=== PATIENT | female | born 1965 | race Caucasian/White ===

== ENCOUNTER → 2016-12-09 | Outpatient (CLI) | payer OTHER ==
[~2016-12-09] MED LIST: /DOXE100CA PO; /PREG50CA PO; AMIT25TA PO; BUTA-198 PO; CALC500T21 PO; COLA100C5 PO; CYCL10TA3 PO; DOXE100CA PO; DUONSOL IN; FERR1TAB8 PO; GABA-279 PO; GABA-282 PO; HYDR10TA20 PO; HYDR2TAB2 PO; LEVS0.123 SL; LINZ145C PO; META28.35 PO; METAPKT PO; MIDO5TA PO; MIRA3350 PO; OMEP20CA3 PO; ORSYTAB PO; OYST500T50 PO; TRAZ50TA11 PO; TYLE325T5 PO; VITA10002 PO; VITA500C24 PO; VITATAB11 PO; VITATAB73 PO
[2016-12-09 13:09] LABS: MEAN CORPUSCULAR HEMOGLOBIN 32.1 pg (27.0-33.0); MEAN CORPUSCULAR HGB CONC 36.1 g/dl (32.0-36.5); MEAN CORPUSCULAR VOLUME 88.9 fl (80.0-96.0); PLATELET COUNT, AUTOMATED 133 k/mm3 (150-450); RED CELL DISTRIBUTION WIDTH 11.9 % (11.5-14.5); WHITE BLOOD COUNT 4.9 K/mm3 (4.0-10.0)
[2016-12-09 13:10] LABS: ADD MANUAL DIFFER NO; ADD MORPHOLOGY? NO; BASO % 0.4 % (0.0-1.0); DIFF SLIDE NUMBER 175; EOS # 0.2 K/mm3 (0.0-0.50); EOS % 3.5 % (0.0-3.0); LARGE UNSTAINED CELL # 0.1 K/mm3 (0.0-0.4); LARGE UNSTAINED CELL % 1.6 % (0.0-4.0); LYMPH # 1.7 K/mm3 (1.5-4.5); LYMPH % 33.4 % (24.0-44.0); MONO # 0.3 K/mm3 (0.0-0.8); MONO % 5.6 % (0.0-5.0); NEUTROPHILS # 2.8 K/mm3 (1.8-7.7); NEUTROPHILS % 55.4 % (36.0-66.0)
--- NOTE | 2016-12-09 13:29 | REP ---
LUMBOSACRAL SPINE: Five views lumbosacral spine performed. There is no compression fracture or malalignment with normal lumbar lordosis. There is no spondylolysis or spondylolisthesis. Disc spaces appear well preserved. There is mild spurring of the lumbar vertebral bodies. There is mild sclerosis at the facets of L5-S1. There is slight curvature toward the left. Posterior elements appear intact. IMPRESSION: Minimal degenerative changes appear stable compared to prior study of 08/25/2009. Signed by Justino Coombs MD 12/09/2016 02:26 P
[2016-12-09 13:32] LABS: ERYTHROCYTE SEDIMENTATION RATE 1 mm/hr (0-30)
--- NOTE | 2016-12-09 13:32 | REP ---
SACROILIAC JOINTS: Four views of the sacroiliac joints are performed. There is no fracture or dislocation. The sacroiliac joints do not appear to be significantly narrowed. There is mild subchondral sclerosis on the iliac side of the joints bilaterally in a fairly symmetrical pattern. IMPRESSION: Mild subchondral sclerosis along the sacroiliac joints bilaterally, mainly on the iliac side of the joints. Signed by Justino Coombs MD 12/09/2016 02:26 P
--- NOTE | 2016-12-09 13:34 | REP ---
BILATERAL KNEE SERIES: Five views of bilateral knees performed. There is no fracture or dislocation bilaterally. There is mild diffuse joint space narrowing, subchondral sclerosis and spurring bilaterally. Findings are fairly symmetrical. There is slight bilateral lateral patellofemoral compartment narrowing with subchondral sclerosis. Mild spurring is noted of the lateral patellar facets bilaterally as well as the superior poles of the patellas. IMPRESSION: Mild bilateral degenerative changes. Signed by Justino Coombs MD 12/09/2016 02:26 P
--- NOTE | 2016-12-09 13:37 | REP ---
BILATERAL FOOT SERIES: Four views of bilateral feet performed. There is no acute fracture or dislocation bilaterally. There is mild posterior and inferior calcaneal spurring on the left with mild joint space, subchondral sclerosis and spurring at the first metatarsophalangeal joint. There is also mild spurring of the posterior and inferior right calcaneus with mild spurring, subchondral sclerosis and narrowing at the first metatarsophalangeal joint in the right foot. IMPRESSION: Mild bilateral degenerative changes. Signed by Justino Coombs MD 12/09/2016 02:26 P
[2016-12-09 13:59] LABS: ALBUMIN/GLOBULIN RATIO 1.14 (1.00-1.93); ALKALINE PHOSPHATASE 102 U/L (45-117); ALT/SGPT 83 U/L (12-78); ANION GAP 6 MEQ/L (8-16); AST/SGOT 44 U/L (15-37); BILIRUBIN,TOTAL 0.4 MG/DL (0.2-1.0); BLOOD UREA NITROGEN 9 MG/DL (7-18); CARBON DIOXIDE LEVEL 29 MEQ/L (21-32); CHLORIDE LEVEL 109 MEQ/L (98-107); CREATININE FOR GFR 0.58 MG/DL (0.55-1.02); GLOMERULAR FILTRATION RATE > 60.0 (>51); GLUCOSE, FASTING 92 MG/DL (70-105); SODIUM LEVEL 144 MEQ/L (136-145); TOTAL PROTEIN 7.5 GM/DL (6.4-8.2)
[2016-12-09 14:00] LABS: VITAMIN B12 LEVEL 1455 PG/ML (247-911)
[2016-12-12 00:06] LABS: Lyme Disease IgG/IgM Antibodie <0.91 ISR (0.00-0.90); Lyme Disease IgM Ab Quantitati <0.80 index (0.00-0.79)
== END ==
LOC: M LAB 11:08
PROVIDERS: ATTEND Internal Medicine Rheumatology
DX: Z79.899 Other long term (current) drug therapy (principal)

== ENCOUNTER → 2017-08-24 | Outpatient (CLI) | payer OTHER ==
[~2017-08-24] MED LIST changes: -/DOXE100CA PO; -/PREG50CA PO; -AMIT25TA PO; -BUTA-198 PO; -CALC500T21 PO; -COLA100C5 PO; +CONRAY-43 43% 50ML VIAL (Q9960) As Ordered; -CYCL10TA3 PO; -DOXE100CA PO; -DUONSOL IN; -FERR1TAB8 PO; -GABA-279 PO; -GABA-282 PO; -HYDR10TA20 PO; -HYDR2TAB2 PO; -LEVS0.123 SL; -LINZ145C PO; -META28.35 PO; -METAPKT PO; -MIDO5TA PO; -MIRA3350 PO; -OMEP20CA3 PO; -ORSYTAB PO; -OYST500T50 PO; -TRAZ50TA11 PO; -TYLE325T5 PO; -VITA10002 PO; -VITA500C24 PO; -VITATAB11 PO; -VITATAB73 PO
== END ==
LOC: M RADPRO 08:38
DX: M17.12 Unilateral primary osteoarthritis, left knee (principal); M94.262 Chondromalacia, left knee; M22.2X2 Patellofemoral disorders, left knee
CPT/HCPCS: 27370

== ENCOUNTER → 2017-09-07 | Outpatient (REF) | payer OTHER ==
[2017-09-07 13:48] LABS: BASO % 0.8 % (0.0-1.0); EOS # 0.2 10^3/uL (0.0-0.50); EOS % 2.9 % (0.0-3.0); HEMATOCRIT 41.1 % (36.0-47.0); HEMOGLOBIN 13.8 g/dl (12.0-15.5); IMMATURE GRANULOCYTE % 0.4 % (0-3.0); LYMPH # 1.5 10^3/uL (1.5-4.5); LYMPH % 29.2 % (24.0-44.0); MEAN CORPUSCULAR HEMOGLOBIN 30.3 pg (27.0-33.0); MEAN CORPUSCULAR HGB CONC 33.6 g/dl (32.0-36.5); MEAN CORPUSCULAR VOLUME 90.3 fl (80.0-96.0); MONO # 0.4 10^3/uL (0.0-0.8); MONO % 7.9 % (0.0-5.0); NEUTROPHILS # 3.1 10^3/uL (1.8-7.7); NEUTROPHILS % 58.8 % (36.0-66.0); PLATELET COUNT, AUTOMATED 213 10^3/uL (150-450); RED BLOOD COUNT 4.55 10^6/uL (4.00-5.40); RED CELL DISTRIBUTION WIDTH 12.2 % (11.5-14.5); WHITE BLOOD COUNT 5.2 10^3/uL (4.0-10.0)
[2017-09-07 14:08] LABS: ERYTHROCYTE SEDIMENTATION RATE 5 mm/hr (0-30)
[2017-09-07 14:35] LABS: C REACTIVE PROTEIN QUANTITATIV < 0.30 MG/DL (0.00-0.30); RHEUMATOID FACTOR QUANT < 10.0 IU/ML (<15.0)
[2017-09-07 14:35] LABS: URIC ACID 4.9 MG/DL (2.6-6.0)
[2017-09-09 00:13] LABS: ANTINUCLEAR ANTIBODIES DIRECT Negative (Negative); Lyme Disease IgG/IgM Antibodie <0.91 ISR (0.00-0.90); Lyme Disease IgM Ab Quantitati <0.80 index (0.00-0.79)
== END ==
LOC: M LABDRAW1 13:25
DX: M22.2X2 Patellofemoral disorders, left knee (principal)

== ENCOUNTER → 2019-12-28 | Outpatient (CLI) | payer OTHER ==
[~2019-12-28] MED LIST changes: +ACAR25TA2 PO; +AMIT25TA PO; +ASPI81TA26 PO; +ATOR40TA75 PO; +BACL1TAB8 PO; +BUTA-198 PO; +CALC500T21 PO; +COLA100C5 PO; -CONRAY-43 43% 50ML VIAL (Q9960) As Ordered; +CYAN100049 PO; +CYCL10TA3 PO; +DILA2TAB6 PO; +DOK1CAP7; +DOXE100CA PO; +DOXE1CAP8 PO; +DUONSOL IN; +FERR1TAB8 PO; +FIOR1CAP PO; +GABA-1171 PO; +GABA-843 PO; +GABA600T4 PO; +HYDR-4571 PO; +HYDR10TA20 PO; +HYDR2TAB2 PO; +KONS100P4 PO; +LEVS0.123 SL; +LINZ145C PO; +LYRI50CA PO; +MELO7.5T35 PO; +META28.35 PO; +METO1TAB87 PO; +MIDO5TA PO; +MIRA3350 PO; +OMEP20CA3 PO; +ORSYTAB PO; +OXYB-54 PO; +OYST500T10 PO; +OYST500T50 PO; +PANT40TA29 PO; +PLAV1TAB2 PO; +POTA10TA16 PO; +RAMI1CAP21 PO; +TEMA15CA2 PO; +TRAZ-252 PO; +TRAZ150T90 PO; +TYLE325T5 PO; +VITA500C24 PO; +VITATAB11 PO; +VITATAB73 PO
== END ==
LOC: M LABSMTC 08:11
PROVIDERS: ATTEND Anesthesiology
DX: Z01.812 Encounter for preprocedural laboratory examination (principal); Z20.828 Contact with and (suspected) exposure to other viral communicable diseases
CPT/HCPCS: C9803; U0003

== ENCOUNTER 2020-01-02 12:40 | Day surgery (SDC) | payer OTHER ==
[~2020-01-02] VITALS: Ht 157.5 cm; Wt 68.4 kg
[~2020-01-02 12:40] MED LIST changes: +LIDOCAINE 1% SDV 30ML VIAL As Ordered ONE; +LR 1,000 ML IV ONE; +MIDAZOLAM INJ 2MG/2ML VIAL (J2250 PER 1MG) As Ordered ONE; -PLAV1TAB2 PO; +ceFAZolin SOD 1 GM in D5W MINI-BAG PLUS 50 ML IV ONE; +fentaNYL 100 MCG/2 ML INJECTION (J3010) As Ordered ONE
[2020-01-02] MEDS ORDERED: PLAV1TAB2 PO (13:19)
[2020-01-02] MEDS ORDERED: NEOSPORIN TOP OINT 15GM As Ordered ONE (13:51)
[2020-01-02] MEDS ORDERED: ONDANSETRON 4MG/2ML VIAL As Ordered ONE (14:34)
[2020-01-02] MEDS ORDERED: propofoL 200 MG/20 ML VIAL As Ordered ONE ×2 (14:34→15:48)
[2020-01-02] MEDS ORDERED: LIDOCAINE 2% 100MG/5ML SDV (FOR ANES.) As Ordered ONE (14:34)
[2020-01-02] MEDS ORDERED: fentaNYL 100 MCG/2 ML INJECTION (J3010) As Ordered ONE (16:04)
[2020-01-02 17:00] VITALS: BP 122/75
--- NOTE | 2020-01-03 10:37 | RO ---
DATE OF OPERATION: 01/02/2020 PREOPERATIVE DIAGNOSIS: Pacemaker battery depletion. POSTOPERATIVE DIAGNOSIS: Pacemaker battery depletion. PROCEDURE PERFORMED: Explantation of old dual-chamber pacemaker pulse generator and implantation of new dual-chamber pacemaker pulse generator. Placement of a TYRX antimicrobial envelope. FINDINGS: Pacemaker battery depletion. SURGEON: Nicho Lomas M.D. COMPOSITE BOND WORKER: None. ANESTHESIA: Lidocaine 1% local/monitored anesthetic care. SPECIMENS: Old [employer] dual-chamber pacemaker pulse generator. ESTIMATED BLOOD LOSS: Less than 5 mL. BLOOD PRODUCTS REPLACED: None. DRAINS: None. COMPLICATIONS: None. PROCEDURE DESCRIPTION: Patient was prepped and draped over the left pectoral region. 3M Ioban film was applied. Lidocaine 1% was used for local anesthetic. An incision was made over the existing pacemaker pulse generator scar using a Antavo PEAK PlasmaBlade. The PEAK PlasmaBlade was used to down to the anterior capsule overlying the pacemaker pulse generator with a small amount of fine scissors dissection. The tie-down stitch holding the pacemaker pulse generator was then snipped and removed as much as possible. Next, I freed up some of the adhesions on the pacemaker leads in the floor of the pocket. After freeing up some of the adhesions on the leads, the pacemaker pulse generator was switched over to the new pacemaker pulse generator and the internal pins were secured using the Hex screwdriver to tighten the set screws. Next, I took a medium-size Medtronic TYRX antimicrobial envelope (reference #[id number], lot #[id number]). It was cut into four pieces and [facility]. Next, the excess lead material was coiled underneath the new pacemaker pulse generator and placed into the pacemaker pocket with the pacemaker pulse generator on top and the excess lead material below. The pacemaker pulse generator was then secured to the pectoral muscle using an 0 Ethibond suture. The deep layer was closed using individual sutures consisting of 2-0 Vicryl. A few 3-0 Vicryl sutures were used to help close the more superficial layer. I then used a 4-0 Biosyn suture to approximate the skin subcuticular layer with the stitch protruding 1 cm from either side of the incision. The Biosyn suture was then cut on both sides at the level of the skin. Next, a Prineo dressing was applied. Patient tolerated the procedure well without any immediate complications. The existing pacemaker pulse generator that was removed was a [employer], model L301 with serial #[id number], initially implanted 05/25/2015. The new pacemaker pulse generator implanted was a [employer] Accolade MRI EL DR, model L331 with serial #[id number]. The existing right ventricle lead was a Guidant Dextrus IS-1 bipolar active fixation lead, 53 cm, model 4136 with serial #[id number], originally implanted 05/25/2015. Testing through the new pacemaker device for the right ventricular lead showed capture threshold of 1.3 volts at 0.4 milliseconds with lead impedance of 517 ohms and R-waves of 2.5 millivolts. The existing right atrial lead was a Guidant Dextrus IS-1 bipolar active fixation lead 45 cm in length, model 4135 with serial number [id number], originally implanted 05/25/2015. Device base testing for the right atrial lead through the new pacemaker pulse generator showed a capture threshold of 0.4 volts at 0.4 milliseconds with a lead impedance of 528 ohms and an impedence and P-wave amplitude of 0.75 millivolts. [facility]
== END 2020-01-02 17:00 | disposition home or self-care (01) ==
LOC: M SDC 12:40
PROVIDERS: ATTEND Internal Medicine Cardiovascular Disease
DX: Z45.010 Encounter for checking and testing of cardiac pacemaker pulse generator [battery] (principal); I49.5 Sick sinus syndrome; Z98.61 Coronary angioplasty status; I10 Essential (primary) hypertension; E78.5 Hyperlipidemia, unspecified; K21.9 Gastro-esophageal reflux disease without esophagitis; G43.909 Migraine, unspecified, not intractable, without status migrainosus; J44.9 Chronic obstructive pulmonary disease, unspecified; D64.9 Anemia, unspecified; K58.8 Other irritable bowel syndrome; Z98.84 Bariatric surgery status; Z79.899 Other long term (current) drug therapy; Z79.82 Long term (current) use of aspirin
CPT/HCPCS: 33228; C1785; J0690; J2250; J2405; J3010

== ENCOUNTER → 2020-02-07 | Outpatient (CLI) | payer OTHER ==
[~2020-02-07] MED LIST changes: -LIDOCAINE 1% SDV 30ML VIAL As Ordered ONE; -LR 1,000 ML IV ONE; -MIDAZOLAM INJ 2MG/2ML VIAL (J2250 PER 1MG) As Ordered ONE; +PLAV1TAB2 PO; -ceFAZolin SOD 1 GM in D5W MINI-BAG PLUS 50 ML IV ONE; -fentaNYL 100 MCG/2 ML INJECTION (J3010) As Ordered ONE
--- NOTE | 2020-02-07 09:46 | REPVR ---
PROCEDURE INFORMATION: Exam: CT Temporal Bones Without Contrast. Exam date and time: 02/07/2020 8:35 AM Age: 54 years old Clinical indication: Other: Hearing loss; Additional info: Mix conductive hearing loss rachel TECHNIQUE: Imaging protocol: Computed tomography images of the temporal bones without contrast. Radiation optimization: All CT scans at this facility use at least one of these dose optimization techniques: automated exposure control; mA and/or kV adjustment per patient size (includes targeted exams where dose is matched to clinical indication); or iterative reconstruction. COMPARISON: No relevant prior studies available. FINDINGS: Right inner ear: Normal. Right ossicles and middle ear: There is crescentic soft tissue abutting the lateral margin of the right tympanic membrane diffusely. Right external auditory canal: Normal. Right facial nerve canal: Normal. Right jugular foramen: No jugular dehiscence. Right carotid canal: No aberrent carotid canal. Right mastoid air cells: Normal. No mastoid effusions. Left inner ear: Normal. Left ossicles and middle ear: Normal. The middle ear ossicles are intact. Left external auditory canal: Normal. Left facial nerve canal: Normal. Left jugular foramen: No jugular dehiscence. Left carotid canal: No aberrent carotid canal. Left mastoid air cells: Normal. No mastoid effusions. Soft tissues: Unremarkable. IMPRESSION: Soft tissue abutting the lateral margin of the right tympanic membrane, potentially medial canal fibrosis. ENT evaluation is recommended. Electronically signed by: Kristel Ford On 02/07/2020 09:46:01 AM
== END ==
LOC: M RAD 08:18
PROVIDERS: ATTEND Otolaryngology
DX: H90.6 Mixed conductive and sensorineural hearing loss, bilateral (principal)

== ENCOUNTER 2020-04-16 07:53 | Day surgery (SDC) | payer OTHER ==
[~2020-04-16] VITALS: Ht 157.5 cm; Wt 69.4 kg
[~2020-04-16 07:53] MED LIST changes: -AMIT25TA PO; +AMIT25TA17 PO; +GABA-282 PO; -GABA-843 PO; +LR 1,000 ML IV ONE; +dexameTHASONE 4 MG/ML 1ML VIAL (J1100 PER 1MG) IV ONE
--- OUTSIDE RECORDS SUMMARY | 2020-04-16 07:58 | CCD | Continuity of Care Document ---
Author Author Kristin TORRES MD Organization Unknown Address [address] [place] [id number] Phone [phone] Care Team Providers Care Budget And Policy Analyst Name Role Phone Adam, Josue Chandra AUTM [phone] Randi Gonzales AUTM [phone] AUTM Unavailable Problems Active Problems Provider Date Chest pain Bradford Sharpe D.O. Onset: 12/30/2014 Obstructive sleep apnea syndrome Bradford Sharpe D.O. Onset: 11/19/2014 Difficulty breathing Bradford Sharpe D.O. Onset: 11/19/2014 Cough Bradford Sharpe D.O. Onset: 11/19/2014 Tobacco user Bradford Sharpe D.O. Onset: 11/19/2014 Chronic obstructive lung disease Bardford Sharpe D.O. Onset: 11/19/2014 Social History Type Date Description Comments Sex Unknown Smokeless Tobacco Never Used Smokeless Tobacco ETOH Use Denies alcohol use Recreational Drug Use Denies Drug Use Tobacco Use Start: Unknown Non Smoker Allergies, Adverse Reactions, Alerts Description No Known Drug Allergies Medications Active Medications SIG Qnty Indications Ordering Provide r Date Acarbose 25mg Tablets Unknown Baclofen 10mg Tablets 1 tab three times a day as needed Unknown Temazepam 15mg Capsules at be dtime Unknown Pantoprazole Sodium 40mg Tablets D R 1 by mouth every day Unknown Metoprolol Succinate ER 50mg Tablets ER 24HR Unknown Midodrine HCL 5mg Tablets 1 by mouth three times a day Unknown Ramipril 1.25mg Capsules gifty y Unknown Atorvastatin Calcium 40mg Tablets Unknown Potassium Chloride Thuy ER 10Meq Tablets ER Unknown Aspirin [address] take 1 tab by mouth daily Unknown Hydrocodone-Acetaminophen 5-325mg Tablets Unknown Gabapentin 600mg Tablets twic e a day Unknown Dilaudid 2mg Tablets 1 by mouth every 4 hours Unknown Butalbital/Acetaminophen/Caffeine 50-300-40mg Capsules 1 PO Q4H prn Unknown Oysco 500+D [id number] Tablets 1 PO qd Unknown Vitamin B12 100mcg Tablets 1 PO qd Unknown Ascorbic Acid 500mg Tablets 1 PO qd Unknown Colace 100mg Capsules 1 PO pr n qd Unknown Duoneb 0.5-2.5(3)mg/3ML Solution 1 vial four times a day as needed Unknown Ferrousul 325(65Fe) mg Tablets 1 PO bid Unknown Immunizations Description No Information Available Vital Signs Date Vital Result Comment 02/03/2020 10:31am Height 62 inches 5'2" Weight 150.00 lb BMI (Body Mass Index) 27.4 kg/m2 [place] Body Weight 110 lb Weight 68.040 kg 12/30/2014 2:45pm BP Systolic 114 mmHg BP Diastolic 76 mmHg Heart Rate 55 /min O2 % BldC Oximetry 98 % Height 60 inches Weight 132.00 lb BMI (Body Mass Index) 25.8 kg/m2 Weight 59.874 kg Results Description No Information Available Procedures Description No Information Available Medical Devices Description No Information Available Encounters Description No Information Available Assessments Date Code Description Provider 02/03/2020 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, bilateral Jatin Torres MD 02/03/2020 H93.11 Tinnitus, right ear Jatin Torres MD Plan of Treatment Future Appointment(s):* 03/05/2020 10:30 am - Jatin Torres MD at [facility] 02/03/2020 - Jatin Torres MD* H90.6 Mixed conductive and sensorineural hearing loss, bilateral* New Xrays:* CT Temporal Bones W/O Contrast 82634, Ordered: 02/03/20 * H93.11 Tinnitus, right ear Functional Status Description No Information Available Mental Status Description No Information Available Referrals Refer to Reason for Referral Status Appt Date Jatin Torres MD MIXED HEARING LOSS Scheduled [address] [address] [phone]
--- OUTSIDE RECORDS SUMMARY | 2020-04-16 07:58 | CCD | Continuity of Care Document ---
Author Author Kristin CRAWLEY P.A.-C. Organization Unknown Address [address] [place] [address] Phone [phone] Care Team Providers Care National Sales Director Name Role Phone Reason, Josue Bowman D.O. AUTM [phone] Problems Active Problems Provider Date Headache Haylie Tinoco M.D. Onset: 10/05/2016 Social History Type Date Description Comments Sex Unknown Tobacco Use Start: Unknown Patient has never smoked Allergies, Adverse Reactions, Alerts Active Allergies Reaction Severity Comments Date Adhesives 10/05/2016 Celexa rash 05/12/2018 Medications Active Medications SIG Qnty Indications Ordering Provide r Date Ajovy 225mg/1.5ML Solution Auto-In ject inject sq as directed monthly, 1.500ml G44.221 Kathy Sloan 03/02/2020 History Medications No Active Medications Unknown - 03/02/2020 Immunizations Description No Information Available Vital Signs Date Vital Result Comment 08/09/2018 6:51am BP Systolic 112 mmHg BP Diastolic 80 mmHg Heart Rate 64 /min Respiratory Rate 16 /min 05/08/2018 11:00am BP Systolic 118 mmHg BP Diastolic 80 mmHg Heart Rate 64 /min Respiratory Rate 16 /min Results Description No Information Available Procedures Description No Information Available Medical Devices Description No Information Available Encounters Description No Information Available Assessments Date Code Description Provider 03/02/2020 G44.221 Chronic tension-type headache, i ntractable Dejah HenriquezAMary Beth-C. 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 Trickey, P.A.-C. 03/02/2020 M62.838 Other muscle spasm Araseli lassiter P.A.-C. 03/02/2020 M54.2 Cervicalgia Dejah HenriquezA.-C. 01/10/2020 G44.221 Chronic tension-type headache, i ntractable Dejah HenriquezA.-C. 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 01/10/2020 M62.838 Other muscle spasm Chin Munoz.A.-C. 01/10/2020 M54.2 Cervicalgia Dejah HenriquezA.-C. 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
--- OUTSIDE RECORDS SUMMARY | 2020-04-16 07:58 | CCD | Continuity of Care Document ---
Author Author Kristin PALAFOX P.A.-C. Organization Unknown Address [address] [place] [address] Phone [phone] Care Team Providers Care Warehouse Receiving Clerk Name Role Phone Reason, Josue Bowman D.O. AUTM [phone] Problems Active Problems Provider Date Headache Haylie [...] Medical Devices Description No Information Available Encounters Type Date Location Provider Dx Diagnosis Office Visit 03/02/2020 8:00a Main office - [place] Dejah LopezAEliceo G43.719 Chronic migraine w/o aura, intractable, w/o stat migr G44.41 Drug-induced headache, not e lsewhere classified, intractable M54.2 Cervicalgia Assessments Date Code Description Provider 03/02/2020 G43.719 Chronic migraine wit hout aura, intractable, without status migrainosus Chin Henriquez.A.-C. 03/02/2020 G44.41 Drug-induced headache, not elsew here classified, intractable Chin Henriquez.A.-C. 03/02/2020 M54.2 Cervicalgia Chin Henriquez.A.-C. 01/10/2020 G44.221 Chronic tension-type headache, i ntractable Araseli Palafox P.A.-C. 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 01/10/2020 G44.41 Drug-induced headache, not elsew here classified, intractable Araseli Palafox P.A.-C. 01/10/2020 M62.838 Other muscle spasm Araseli lassiter P.A.-CMary Beth 01/10/2020 M54.2 Cervicalgia Chin Henriquez.A.-C. Plan of Treatment 03/02/2020 - Chin Henriquez.A.-C.* G43.719 Chronic migraine without aura, intractable, without status migrainosus* Comments:* She failed Depakote, Topamax, and Cymbalta. She takes metoprolol so propranolol not prescribed. Triptans not prescribed due to history of CAD. Aimovig not prescribed due to history of IBS. Add Ajovy injection as directed. * G44.41 Drug-induced headache, not elsewhere classified, intractable* Comments: * She was advised to reduce Excedrin and Tylenol. She should not use Excedrin with Mobic and aspirin anyway. * M54.2 Cervicalgia* Comments:* Follow up with [facility]. * Follow up:* 3 months Functional Status Description No Information Available Mental Status Description No Information Available Referrals Description No Information Available
--- OUTSIDE RECORDS SUMMARY | 2020-04-16 07:58 | CCD | Continuity of Care Document ---
Author Author Kristin TORRES MD Organization Unknown Address [address] [address] Phone [phone] Care Team Providers Care Head Of Operation And Logistics Name Role Phone Adam, Josue Chandra AUTM [phone] Randi Gonzales AUTM [phone] AUTM Unavailable Problems Active Problems Provider Date Chest pain Bradford Sharpe D.O. Onset: 12/30/2014 Obstructive sleep apnea syndrome Bradford Sharpe D.O. Onset: 11/19/2014 Difficulty breathing Bradford Sharpe D.O. Onset: 11/19/2014 Cough Bradford Sharpe D.O. Onset: 11/19/2014 Tobacco user Bradford Sharpe D.O. Onset: 11/19/2014 Chronic obstructive lung disease Bradford Sharpe D.O. Onset: 11/19/2014 Social History Type [...] 1 PO Q4H prn Unknown Oysco 500+D [id number] Tablets 1 PO qd Unknown Vitamin B12 100mcg Tablets 1 PO qd Unknown Ascorbic Acid 500mg Tablets 1 PO qd Unknown Colace 100mg Capsules 1 PO pr n qd Unknown Duoneb 0.5-2.5(3)mg/3ML Solution 1 vial four times a day as needed Unknown Ferrousul 325(65Fe) mg Tablets 1 PO bid Unknown Immunizations Description No Information Available Vital Signs Date Vital Result Comment 04/08/2020 1:37pm Height 62 inches 5'2" Weight 150.00 lb BMI (Body Mass Index) 27.4 kg/m2 [place] Body Weight 110 lb Weight 68.040 kg BSA (Body Surface Area) 1.69 m2 02/03/2020 10:31am Height 62 inches 5'2" Weight 150.00 lb BMI (Body Mass Index) 27.4 kg/m2 [place] Body Weight 110 lb Weight 68.040 kg BSA (Body Surface Area) 1.69 m2 Results Description No Information Available Procedures Description No Information Available Medical Devices Description No Information Available Encounters Type Date Location Provider Dx Diagnosis Office Visit 02/03/2020 10:45a [facility] Jatin Torres MD H90.6 Mixed conductive and sensorineural hearing loss, bilateral H93.11 Tinnitus, right ear Assessments Date Code Description Provider 04/08/2020 H92.01 Otalgia, right ear Jatin Torres MD 04/08/2020 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
--- OUTSIDE RECORDS SUMMARY | 2020-04-16 07:59 | CCD ---
Author Author [facility] Organization [facility] Address Unknown Phone Unavailable Care Team Providers Care Desk Lieutenant Name Role Phone Vinnie MCKEON MD Unavailable Unavailable ANTECOLVinnie MD Unavailable Unavailable ANTECOLVinnie MD Unavailable Unavailable ANTECOLVinnie MD Unavailable Unavailable ANTECOLVinnie MD Unavailable Unavailable ANTECOLVinnie MD Unavailable Unavailable ANTECOLVinnie MD Unavailable Unavailable ANTECOLVinnie MD Unavailable Unavailable ANTECOLVinnie MD Unavailable Unavailable ANTECVinnie ADAMS MD Unavailable Unavailable ANTECVinnie ADAMS MD Unavailable Unavailable Vinnie MCKEON MD Unavailable Unavailable ANTECVinnie ADAMS MD Unavailable Unavailable ANTECVinnie ADAMS MD Unavailable Unavailable ANTECOLVinnie MD Unavailable Unavailable ANTECOLVinnie MD Unavailable Unavailable ANTECOLVinnie MD Unavailable Unavailable ANTECOL, Vinnie GUERRERO MD Unavailable Unavailable ANTECOL, Vinnie GUERRERO MD Unavailable Unavailable ANTECOL, Vinnie GUERRERO MD Unavailable Unavailable ANTECOL, Vinnie GUERRERO MD Unavailable Unavailable ANTECOL, Vinnie GUERRERO MD Unavailable Unavailable ANTECOL, Vinnie GUERRERO MD Unavailable Unavailable ANTECOL, Vinnie GEURRERO MD Unavailable Unavailable ANTECOL, Vinnie GUERRERO MD Unavailable Unavailable ANTECOL, Vinnie GUERRERO MD Unavailable Unavailable ANTECOL, Vinnie GUERRERO MD Unavailable Unavailable ANTECOL, Vinnie GUERRERO MD Unavailable Unavailable ANTECOL, Vinnie GUERRERO MD Unavailable Unavailable ANTECOL, Vinnie GUERRERO MD Unavailable Unavailable ANTECOL, Vinnie GUERRERO MD Unavailable Unavailable ANTECOL, Vinnie GUERRERO MD Unavailable Unavailable ANTECOL, Vinnie GUERRERO MD Unavailable Unavailable ANTECOL, Vinnie GUERRERO MD Unavailable Unavailable ANTECOL, Vinnie GUERRERO MD Unavailable Unavailable ANTECOL, Vinnie GUERRERO MD Unavailable Unavailable ANTECOL, Vinnie GUERRERO MD Unavailable Unavailable ANTECOL, Vinnie GUERRERO MD Unavailable Unavailable ANTECOL, Vinnie GUERRERO MD Unavailable Unavailable ANTECOL, Vinnie GUERRERO MD Unavailable Unavailable ANTECOL, Vinnie GUERRERO MD Unavailable Unavailable ANTECOL, Vinnie GUERRERO MD Unavailable Unavailable ANTECOL, Vinnie GUERRERO MD Unavailable Unavailable ANTECOL, Vinnie GUERRERO MD Unavailable Unavailable ANTECOL, Vinnie GUERRERO MD Unavailable Unavailable ANTECOL, Vinnie GUERRERO MD Unavailable Unavailable ANTECOL, Vinnie GUERRERO MD Unavailable Unavailable ANTECOL, Vinnie GUERRERO MD Unavailable Unavailable ANTECOL, Vinnie GUERRERO MD Unavailable Unavailable ANTECOL, Vinnie GUERRERO MD Unavailable Unavailable ANTECOL, Vinnie GUERRERO MD Unavailable Unavailable ANTECOL, Vinnie GUERRERO MD Unavailable Unavailable ANTECOL, Vinnie GUERRERO MD Unavailable Unavailable ANTECOL, Vinnie GUERRERO MD Unavailable Unavailable ANTECOL, Vinnie GUERRERO MD Unavailable Unavailable Symenow, Makayla Rylie PA Unavailable Unavailable Symenow, Makayla Rylie PA Unavailable Unavailable Symenow, Makayla Rylie PA Unavailable Unavailable Symenow, Makayla Rylie PA Unavailable Unavailable Symenow, Makayla Rylie PA Unavailable Unavailable Symenow, Makayla Rylie PA Unavailable Unavailable Symenow, Makayla Rylie PA Unavailable Unavailable Symenow, Makayla Rylie PA Unavailable Unavailable Symenow, Makayla Rylie PA Unavailable Unavailable Symenow, Makayla Rylie PA Unavailable Unavailable Symenow, Makayla Rylie PA Unavailable Unavailable Symenow, Makayla Rylie PA Unavailable Unavailable Symenow, Makayla Rylie PA Unavailable Unavailable Symenow, Makayla Rylie PA Unavailable Unavailable Symenow, Makayla Rylie PA Unavailable Unavailable Symenow, Makayla Rylie PA Unavailable Unavailable Symenow, Makayla Rylie PA Unavailable Unavailable Symenow, Makayla Rylie PA Unavailable Unavailable Symenow, Makayla Rylie PA Unavailable Unavailable Symenow, Makayla Rylie PA Unavailable Unavailable Symenow, Makayla Rylie PA Unavailable Unavailable Symenow, Makayla Rylie PA Unavailable Unavailable Symenow, Makayla Rylie PA Unavailable Unavailable Symenow, Makayla Rylie PA Unavailable Unavailable Symenow, Makayla Rylie PA Unavailable Unavailable Symenow, Makayla Rylie PA Unavailable Unavailable Symenow, Makayla Rylie PA Unavailable Unavailable Symenow, Makayla Rylie PA Unavailable Unavailable Symenow, Makayla Rylie PA Unavailable Unavailable Symenow, Makayla Rylie PA Unavailable Unavailable Symenow, Makayla Rylie PA Unavailable Unavailable Symenow, Makayla Rylie PA Unavailable Unavailable Symenow, Makayla Rylie PA Unavailable Unavailable Symenow, Makayla Rylie PA Unavailable Unavailable Symenow, Makayla Rylie PA Unavailable Unavailable Symenow, Makayla Rylie PA Unavailable Unavailable REASON, L EDWARD DO Unavailable Unavailable REASON, L EDWARD DO Unavailable Unavailable REASON, L EDWARD DO Unavailable Unavailable REASON, L EDWARD DO Unavailable Unavailable REASON, L EDWARD DO Unavailable Unavailable REASON, L EDWARD DO Unavailable Unavailable REASON, L EDWARD DO Unavailable Unavailable REASON, L EDWARD DO Unavailable Unavailable REASON, L EDWARD DO Unavailable Unavailable REASON, L EDWARD DO Unavailable Unavailable REASON, L EDWARD DO Unavailable Unavailable REASON, L EDWARD DO Unavailable Unavailable REASON, L EDWARD DO Unavailable Unavailable REASON, L EDWARD DO Unavailable Unavailable REASON, L EDWARD DO Unavailable Unavailable REASON, L EDWARD DO Unavailable Unavailable REASON, L EDWARD DO Unavailable Unavailable REASON, L EDWARD DO Unavailable Unavailable REASON, L EDWARD DO Unavailable Unavailable REASON, L EDWARD DO Unavailable Unavailable REASON, L EDWARD DO Unavailable Unavailable REASON, L EDWARD DO Unavailable Unavailable REASON, L EDWARD DO Unavailable Unavailable REASON, L EDWARD DO Unavailable Unavailable REASON, L EDWARD DO Unavailable Unavailable REASON, L EDWARD DO Unavailable Unavailable REASON, L EDWARD DO Unavailable Unavailable REASON, L EDWARD DO Unavailable Unavailable REASON, L EDWARD DO Unavailable Unavailable REASON, L EDWARD DO Unavailable Unavailable REASON, L EDWARD DO Unavailable Unavailable REASON, L EDWARD DO Unavailable Unavailable REASON, L EDWARD DO Unavailable Unavailable REASON, L EDWARD DO Unavailable Unavailable REASON, L EDWARD DO Unavailable Unavailable REASON, L EDWARD DO Unavailable Unavailable REASON, L EDWARD DO Unavailable Unavailable REASON, L EDWARD DO Unavailable Unavailable REASON, L EDWARD DO Unavailable Unavailable REASON, L EDWARD DO Unavailable Unavailable REASON, L EDWARD DO Unavailable Unavailable REASON, L EDWARD DO Unavailable Unavailable REASON, L EDWARD DO Unavailable Unavailable REASON, L EDWARD DO Unavailable Unavailable REASON, L EDWARD DO Unavailable Unavailable REASON, L EDWARD DO Unavailable Unavailable REASON, L EDWARD DO Unavailable Unavailable REASON, L EDWARD DO Unavailable Unavailable REASON, L EDWARD DO Unavailable Unavailable REASON, L EDWARD DO Unavailable Unavailable REASON, L EDWARD DO Unavailable Unavailable REASON, L EDWARD DO Unavailable Unavailable REASON, L EDWARD DO Unavailable Unavailable REASON, L EDWARD DO Unavailable Unavailable REASON, L EDWARD DO Unavailable Unavailable REASON, L EDWARD DO Unavailable Unavailable REASON, L EDWARD DO Unavailable Unavailable REASON, L EDWARD DO Unavailable Unavailable REASON, L EDWARD DO Unavailable Unavailable REASON, L EDWARD DO Unavailable Unavailable REASON, L EDWARD DO Unavailable Unavailable REASON, L EDWARD DO Unavailable Unavailable REASON, L EDWARD DO Unavailable Unavailable REASON, L EDWARD DO Unavailable Unavailable Trickey, J Araseli PA Unavailable Unavailable Trickey, J Araseli PA Unavailable Unavailable Trickey, J Araseli PA Unavailable Unavailable Trickey, J Araseli PA Unavailable Unavailable Trickey, J Araseli PA Unavailable Unavailable Trickey, J Araseli PA Unavailable Unavailable Trickey, J Araseli PA Unavailable Unavailable Trickey, J Araseli PA Unavailable Unavailable Trickey, J Araseli PA Unavailable Unavailable Trickey, J Araseli PA Unavailable Unavailable Trickey, J Araseli PA Unavailable Unavailable Trickey, J Araseli PA Unavailable Unavailable Trickey, J Araseli PA Unavailable Unavailable Trickey, J Araseli PA Unavailable Unavailable Trickey, J Araseli PA Unavailable Unavailable Trickey, J Araseli PA Unavailable Unavailable Trickey, J Araseli PA Unavailable Unavailable Trickey, J Araseli PA Unavailable Unavailable Trickey, J Araseli PA Unavailable Unavailable Trickey, J Araseli PA Unavailable Unavailable Trickey, J Araseli PA Unavailable Unavailable Trickey, J Araseli PA Unavailable Unavailable Trickey, J Araseli PA Unavailable Unavailable Trickey, J Araseli PA Unavailable Unavailable Trickey, J Araseli PA Unavailable Unavailable Trickey, J Araseli PA Unavailable Unavailable Trickey, J Araseli PA Unavailable Unavailable Trickey, J Araseli PA Unavailable Unavailable Trickey, J Araseli PA Unavailable Unavailable Trickey, J Araseli PA Unavailable Unavailable Trickey, J Araseli PA Unavailable Unavailable Trickey, J Araseli PA Unavailable Unavailable Trickey, J Araseli PA Unavailable Unavailable Trickey, J Araseli PA Unavailable Unavailable Trickey, J Araseli PA Unavailable Unavailable Trickey, J Araseli PA Unavailable Unavailable Trickey, J Araseli PA Unavailable Unavailable Trickey, J Araseli PA Unavailable Unavailable Trickey, J Araseli PA Unavailable Unavailable Trickey, J Araseli PA Unavailable Unavailable Trickey, J Araseli PA Unavailable Unavailable Trickey, J Araseli PA Unavailable Unavailable Trickey, J Araseli PA Unavailable Unavailable Trickey, J Araseli PA Unavailable Unavailable Trickey, J Araseli PA Unavailable Unavailable Trickey, J Araseli PA Unavailable Unavailable Trickey, J Araseli PA Unavailable Unavailable Trickey, J Araseli PA Unavailable Unavailable Trickey, J Araseli PA Unavailable Unavailable Trickey, J Araseli PA Unavailable Unavailable Trickey, J Araseli PA Unavailable Unavailable Trickey, J Araseli PA Unavailable Unavailable SHELLI House RN Unavailable SHELLI House RN Unavailable SHELLI House RN Unavailable Fredi TORRES MD Unavailable Unavailable Fredi TORRES MD Unavailable Unavailable Fredi TORRES MD Unavailable Unavailable Fredi TORRES MD Unavailable Unavailable Fredi TORRES MD Unavailable Unavailable Fredi TORRES MD Unavailable Unavailable Fredi TORRES MD Unavailable Unavailable Fredi TORRES MD Unavailable Unavailable Fredi TORRES MD Unavailable Unavailable Fredi TORRES MD Unavailable Unavailable Fredi TORRES MD Unavailable Unavailable Fredi TORRES MD Unavailable Unavailable Fredi TORRES MD Unavailable Unavailable Fredi TORRES MD Unavailable Unavailable Fredi TORRES MD Unavailable Unavailable Fredi TORRES MD Unavailable Unavailable Fredi TORRES MD Unavailable Unavailable Fredi TORRES MD Unavailable Unavailable Fredi TORRES MD Unavailable Unavailable Fredi TORRES MD Unavailable Unavailable Fredi TORRES MD Unavailable Unavailable KHOI, C LAKSHMI MD Unavailable Unavailable KHOI, C LAKSHMI MD Unavailable Unavailable KHOI, C LAKSHMI MD Unavailable Unavailable KHOI, C LAKSHMI MD Unavailable Unavailable KHOI, C LAKSHMI MD Unavailable Unavailable KHOI, C LAKSHMI MD Unavailable Unavailable KHOI, C LAKSHMI MD Unavailable Unavailable KHOI, C LAKSHMI MD Unavailable Unavailable KHOI, C LAKSHMI MD Unavailable Unavailable KHOI, C LAKSHMI MD Unavailable Unavailable KHOI, C LAKSHMI MD Unavailable Unavailable KHOI, C LAKSHMI MD Unavailable Unavailable KHOI, C LAKSHMI MD Unavailable Unavailable KHOI, C LAKSHMI MD Unavailable Unavailable EZ, IVANA BARNES Unavailable Unavailable EZ, IVANA BARNES Unavailable Unavailable EZ, IVANA BARNES Unavailable Unavailable EZ, IVANA BARNES Unavailable Unavailable EZ, IVANA BARNES Unavailable Unavailable EZ, IVANA BARNES Unavailable Unavailable EZ, IVANA BARNES Unavailable Unavailable EZ, IVANA BARNES Unavailable Unavailable EZ, IVANA BARNES Unavailable Unavailable EZ, IVANA BARNES Unavailable Unavailable EZ, IVANA BARNES Unavailable Unavailable EZ, IVANA BARNES Unavailable Unavailable EZ, IVANA BARNES Unavailable Unavailable EZ, IVANA BARNES Unavailable Unavailable EZ, IVANA BARNES Unavailable Unavailable EZ, IVANA BARNES Unavailable Unavailable EZ, IVANA BARNES Unavailable Unavailable EZ, IVANA BARNES Unavailable Unavailable EZ, IVANA BARNES Unavailable Unavailable EZ, IVANA BARNES Unavailable Unavailable EZ, IVANA BARNES Unavailable Unavailable EZ, IVANA BARNES Unavailable Unavailable EZ, IVANA BARNES Unavailable Unavailable EZ, IVANA BARNES Unavailable Unavailable EZ, IVANA BARNES Unavailable Unavailable EZ, IVANA BARNES Unavailable Unavailable EZ, IVANA BARNES Unavailable Unavailable EZ, IVANA BARNES Unavailable Unavailable EZ, IVANA BARNES Unavailable Unavailable EZ, IVANA BARNES Unavailable Unavailable EZ, IVANA BARNES Unavailable Unavailable EZ, IVANA BARNES Unavailable Unavailable EZ, IVANA BARNES Unavailable Unavailable EZ, IVANA BARNES Unavailable Unavailable EZ, IVANA BARNES Unavailable Unavailable EZ, IVANA BARNES Unavailable Unavailable EZ, IVANA BARNES Unavailable Unavailable EZ, IVANA BARNES Unavailable Unavailable ZE, IVANA BARNES Unavailable Unavailable EZ, IVANA BARNES Unavailable Unavailable EZ, IVANA BARNES Unavailable Unavailable EZ, IVANA BARNES Unavailable Unavailable EZ, IVANA BARNES Unavailable Unavailable EZ, IVANA BARNES Unavailable Unavailable EZ, IVANA BARNES Unavailable Unavailable EZ, IVANA BARNES Unavailable Unavailable EZ, IVANA BARNES Unavailable Unavailable EZ, IVANA BARNES Unavailable Unavailable EZ, IVANA BARNES Unavailable Unavailable EZ, IVANA BARNES Unavailable Unavailable EZ, IVANA BARNES Unavailable Unavailable EZ, IVANA BARNES Unavailable Unavailable EZ, IVANA BARNES Unavailable Unavailable EZ, IVANA BARNES Unavailable Unavailable NaheedSusan hernandez MD Unavailable Unavailable NaheedSusan hernandez MD Unavailable Unavailable NaheedSusan hernandez MD Unavailable Unavailable NaheedSusan hernandez MD Unavailable Unavailable NaheedSusan hernandez MD Unavailable Unavailable NaheedSusan hernandez MD Unavailable Unavailable NaheedSusan hernandez MD Unavailable Unavailable NaheedSusan hernandez MD Unavailable Unavailable NaheedSusan hernandez MD Unavailable Unavailable NaheedSusan hernandez MD Unavailable Unavailable NaheedSusan hernandez MD Unavailable Unavailable NaheedSusan hernandez MD Unavailable Unavailable NaheedSusan hernandez MD Unavailable Unavailable NaheedSusan hernandez MD Unavailable Unavailable NaheedSusan hernandez MD Unavailable Unavailable NaheedSusan hernandez MD Unavailable Unavailable NaheedSusan hernandez MD Unavailable Unavailable NaheedSusan cornell MD Unavailable Unavailable NaheedSusan hernandez MD Unavailable Unavailable NaheedSusan hernandez MD Unavailable Unavailable NaheedSusan hernandez MD Unavailable Unavailable NaheedSusan hernandez MD Unavailable Unavailable NaheedSusan hernandez MD Unavailable Unavailable NaheedSusan hernandez MD Unavailable Unavailable NaheedSusan hernandez MD Unavailable Unavailable NaheedSusan hernandez MD Unavailable Unavailable NaheedSusan hernandez MD Unavailable Unavailable NaheedSusan hernandez MD Unavailable Unavailable Susan Farfan MD Unavailable Unavailable Susan Farfan MD Unavailable Unavailable NaheedSusan hernandez MD Unavailable Unavailable NaheedSusan hernandez MD Unavailable Unavailable NaheedSusan hernandez MD Unavailable Unavailable Hadian, Jun Unavailable Unavailable Hadian, Jun Unavailable Unavailable Hadian, Ujn Unavailable Unavailable Hadian, Jun Unavailable Unavailable Hadian, Jun Unavailable Unavailable Hadian, Jun Unavailable Unavailable Hadian, Jun Unavailable Unavailable Hadian, Jun Unavailable Unavailable Hadian, Jun Unavailable Unavailable Hadian, Jun Unavailable Unavailable Hadian, Jun Unavailable Unavailable Hadian, Jun Unavailable Unavailable Hadian, Jun Unavailable Unavailable Hadian, Jun Unavailable Unavailable Hadian, Jun Unavailable Unavailable Hadian, Jun Unavailable Unavailable Hadian, Jun Unavailable Unavailable Hadian, Jun Unavailable Unavailable Hadian, Jun Unavailable Unavailable Hadian, Jun Unavailable Unavailable Hadian, Jun Unavailable Unavailable Hadian, Jun Unavailable Unavailable Hadian, Jun Unavailable Unavailable Hadian, Jun Unavailable Unavailable Hadian, Jun Unavailable Unavailable Hadian, Jun Unavailable Unavailable Hadian, Jnu Unavailable Unavailable Hadian, Jun Unavailable Unavailable Hadian, Jun Unavailable Unavailable Hadian, Jun Unavailable Unavailable Hadian, Jun Unavailable Unavailable Hadian, Jun Unavailable Unavailable Hadian, Jun Unavailable Unavailable Re-disclosure Warning The records that you are about to access may contain information from federally-assisted alcohol or drug abuse programs. If such information is present, then the following federally mandated warning applies: This information has been disclosed to you from records protected by federal confidentiality rules (42 CFR part 2). The federal rules prohibit you from making any further disclosure of this information unless further disclosure is expressly permitted by the written consent of the person to whom it pertains or as otherwise permitted by 42 CFR part 2. A general authorization for the release of medical or other information is NOT sufficient for this purpose. The Federal rules restrict any use of the information to criminally investigate or prosecute any alcohol or drug abuse patient.The records that you are about to access may contain highly sensitive health information, the redisclosure of which is protected by Article 27-F of the [facility] Public Health law. If you continue you may have access to information: Regarding HIV / AIDS; Provided by facilities licensed or operated by the [facility] Office of Mental Health; or Provided by the [facility] Office for People With Developmental Disabilities. If such information is present, then the following [facility] mandated warning applies: This information has been disclosed to you from confidential records which are protected by state law. State law prohibits you from making any further disclosure of this information without the specific written consent of the person to whom it pertains, or as otherwise permitted by law. Any unauthorized further disclosure in violation of state law may result in a fine or mcfp sentence or both. A general authorization for the release of medical or other information is NOT sufficient authorization for further disc losure. Family History Family Member Name Family Member Gender Family Member Status Date o f Status Description Data Source(s) Unknown Unknown Problem [facility] ([facility]) Encounters Encounter Providers Location Date Indications Data Source(s ) Outpatient Attender: Jun Parks ED-LABPNP 10:20:00 AM EST - 04/13/2020 10:21:00 AM EST Z01.812 [facility] Z01.812 Patient discharged. Outpatient CPSCAORT-LABEJN 03/09/2020 09:46:00 AM EST [facility] Outpatient Attender: EDWARD REASON DO ED-LABGH 03/09 07:23:00 AM EST - 03/09/2020 07:24:00 AM EST [id number] [facility] [id number] Patient discharged. Outpatient Attender: Araseli SUERO Main office - [facility] 03/02/2020 07:00:00 AM EST [facility] ([facility] [place], ) Outpatient [email or web address] 02/03/2020 01:01 :07 PM EST - 02/03/2020 02:51:12 PM EST [facility] Outpatient Attender: LAKSHMI Torres/Griselda/Aayush/Linda brock 02/03/2020 09:45:00 AM EST [facility] ([facility], ) Outpatient Attender: IVANA PANTOJA-SJP.GVR 0 12:00:00 AM EST - 02/03/2020 02:52:55 PM EST [facility] Outpatient Attender: Rylie SUERO Main Office 01/09/2020 12:45:00 PM EDT [facility] ([facility]) Outpatient Attender: YOLANDA MCKEON MD Main Office 12/18/2019 08:45:00 AM EDT [facility] ([facility]) Outpatient [email or web address] 12/09/2019 10:13:38 AM EDT [facility] Outpatient Attender: IVANA PANTOJA-SJP.GVR 0 12:00:00 AM EDT - 11/26/2019 02:38:14 PM EDT [facility] Outpatient [email or web address] 11/20/2019 10:56:42 AM EDT [facility] Outpatient [email or web address].SYR 11/05/2019 11:45:17 AM EDT [facility] Outpatient Attender: EDWARD REASON DO ED-IMAGH 11/04 09:42:00 AM EDT - 11/05/2019 09:43:00 AM EDT [id number] [facility] [id number] Patient discharged. Outpatient SJP-SJP.GVR 10/07/2019 12:56 :53 PM EDT - 10/07/2019 03:39:48 PM EDT [facility] Outpatient CPSCAORT-LABEJN 09/26/2019 12:42:00 PM EDT [facility] Outpatient Attender: EDWARD REASON DO ED-LAB 09/25 08:40:00 AM EDT - 09/26/2019 08:41:00 AM EDT D508 [facility] D508 Patient discharged. Outpatient SJP-SJP.GVR 09/02/2019 12:53:55 PM EDT [facility] Outpatient CPSRIORT-LABEJN 07/29/2019 08:01:00 PM EDT [facility] Outpatient Attender: Jun Parks ED-LABPNP 0 05:30:00 PM EDT - 07/29/2019 05:31:00 PM EDT [facility] SX [facility] COVID SX Patient discharged. Outpatient [email or web address] 07/01/2019 09:05:13 AM EDT [facility] Outpatient Attender: EDWARD REASON DO ED-IMAG 05/16 09:31:00 AM EST - 05/16/2019 09:32:00 AM EST ENLARGEMENT LYMPH NODE [facility] ENLARGEMENT LYMPH NODE Patient discharged. Outpatient Attender: EDWARD REASON DO ED-IMAG 05/08 10:45:00 AM EST - 05/08/2019 10:46:00 AM EST ENLARGED LYMPH NODES [facility] ENLARGED LYMPH NODES Patient discharged. Outpatient CPSCAORT-LABEJN 04/30/2019 03:01:00 PM EST [facility] Outpatient Attender: EDWARD REASON DO ED-LAB 04/30 09:48:00 AM EST - 04/30/2019 09:49:00 AM EST [id number] [facility] [id number] Patient discharged. Outpatient Attender: EDWARD REASON DO ED-IMAGH 04/15 02:41:00 PM EST - 04/15/2019 02:42:00 PM EST R079 [facility] R079 Patient discharged. Outpatient [email or web address].GVR 04/15/2019 02:09:48 PM EST [facility] Outpatient Attender: IVANA HUI MDConsultant: IVANA HUI MD S BASHIR-SJP.GVR 04/01/2019 02:23:44 PM EST - 04/01/2019 03:15:52 PM EST [facility] Outpatient [email or web address]-[email or web address] 04/01/2019 11:02:48 AM EST [facility] Outpatient [email or web address]-[email or web address] 03/23/2019 09:28:29 AM EST [facility] Outpatient Attender: Arabella House RN CPSCAORT-CPSCNPCP 12:18:00 PM EST - 03/08/2019 12:19:00 PM EST [facility] Patient discharged. Outpatient Attender: JOSUE HANNA DO ED-IMAG 01/03 12:56:00 PM EDT - 01/03/2019 12:57:00 PM EDT LOW BACK PAIN [id number] [facility] LOW BACK PAIN M542 [id number] Patient discharged. Outpatient Attender: Guillermo Farfan MD ED-[facility] 019 08:30:00 AM EDT - 12/13/2018 08:31:00 AM EDT K912 [facility] K912 Patient discharged. Medications Medication Brand Name Start Date Product Form Dose Route Admi nistrative Instructions Pharmacy Instructions Status Indications Reaction Description Data Source(s) Divine Haskins 03/02/2020 12:00:00 AM EST SUBCUTANEOUS act jose [facility] ([facility]) No Active Medications 03/02/2020 12:00:00 AM EST completed [facility] ([facility]) 1.25 mg 12/27/2019 12:00:00 AM EDT capsule 30 TAKE ONE CAPSULE BY MOUTH EVERY DAY TAKE ONE CAPSULE BY MOUTH EVERY DAY SOLD: 01/30/2020 [facility] 1.25 mg 12/27/2019 12:00:00 AM EDT capsule 30 TAKE ONE CAPSULE BY MOUTH EVERY DAY TAKE ONE CAPSULE BY MOUTH EVERY DAY SOLD: 03/26/2020 [facility] 1.25 mg 12/27/2019 12:00:00 AM EDT capsule 30 TAKE ONE CAPSULE BY MOUTH EVERY DAY TAKE ONE CAPSULE BY MOUTH EVERY DAY SOLD: 12/29/2019 [facility] 1.25 mg 12/27/2019 12:00:00 AM EDT capsule 30 TAKE ONE CAPSULE BY MOUTH EVERY DAY TAKE ONE CAPSULE BY MOUTH EVERY DAY SOLD: 02/27/2020 [facility] Metoprolol Tartrate 25 MG Oral Tablet Metoprolol Tartrate 12:00:00 AM EDT ORAL active [facility] ([facility] [facility]) meloxicam 7.5 MG Oral Tablet Meloxicam 12/17/2019 12:00:00 AM EDT ORAL active MEDENT (Cardiol[facility]) Oxybutynin chloride 5 MG Oral Tablet Oxybutynin Chloride 12:00:00 AM EDT ORAL active MEDENT (Ca [facility]diology [facility]) pantoprazole 40 MG Delayed Release Oral Tablet Pantoprazole Sodium 12/17/2019 12:00:00 AM EDT ORAL active M EDENT ([facility]) Ramipril 2.5 MG Oral Capsule Ramipril 12/17/2019 12:00:00 AM EDT ORAL active MEDENT ([facility]) Temazepam 15 MG Oral Capsule Temazepam 12/17/2019 12:00:00 AM EDT ORAL active MEDENT ([facility]) Docusate Sodium 100 MG Oral Capsule Docusate Sodium 12/17/2019 1 2:00:00 AM EDT ORAL active MEDENT ( [facility]) gabapentin 600 MG Oral Tablet Gabapentin 12/17/2019 12:00:00 AM EDT ORAL active MEDENT ([facility]) Acetaminophen 325 MG / Hydrocodone Bitartrate 5 MG Ora l Tablet Hydrocodone-Acetaminophen 12/17/2019 12:00:00 AM EDT ORAL active MEDENT ([facility]) Potassium Chloride 10 MEQ Extended Release Oral Tablet Potassium Chloride Thuy ER 12/17/2019 12:00:00 AM EDT ORAL active MEDENT ([facility]) Aspirin 81 MG Delayed Release Oral Tablet Aspirin 12/17/2019 1 2:00:00 AM EDT ORAL active MEDENT ([facility]) Baclofen 10 MG Oral Tablet Baclofen 12/17/2019 12:00:00 AM EDT ORAL active MEDENT ([facility]) atorvastatin 40 MG Oral Tablet Atorvastatin Calcium 12/17/2019 1 2:00:00 AM EDT ORAL active MEDENT ( [facility]) Acarbose 25 MG Oral Tablet Acarbose 12/17/2019 12:00:00 AM EDT ORAL active MEDENT ([facility]) atorvastatin 40 MG Oral Tablet ATORVASTATIN CALCIUM 12/04/2019 1 2:00:00 AM EDT tablet 30 TAKE ONE TABLET BY MOUTH EVERY D AY TAKE ONE TABLET BY MOUTH EVERY DAY SOLD: 12/05/2019 [facility] 25 mg 11/27/2019 12:00:00 AM EDT tablet 45 TAKE ONE-HALF TABLET BY MOUTH TWICE A DAY TAKE ONE-HALF TABLET BY MOUTH TWICE A DAY SOLD: 01/19/2020 [facility] 25 mg 11/27/2019 12:00:00 AM EDT tablet 45 TAKE ONE-HALF TABLET BY MOUTH TWICE A DAY TAKE ONE-HALF TABLET BY MOUTH TWICE A DAY SOLD: 03/02/2020 [facility] 25 mg 11/27/2019 12:00:00 AM EDT tablet 45 TAKE ONE-HALF TABLET BY MOUTH TWICE A DAY TAKE ONE-HALF TABLET BY MOUTH TWICE A DAY SOLD: 11/27/2019 [facility] 5 mg 11/26/2019 12:00:00 AM EDT tablet 90 TAKE ONE TABLET BY MOUTH THREE TIMES A DAY TAKE ONE TABLET BY MOUTH THREE TIMES A DAY SOLD: 11/26/2019 [facility] 1.25 mg 07/18/2019 12:00:00 AM EDT capsule 30 TAKE ONE CAPSULE BY MOUTH EVERY DAY TAKE ONE CAPSULE BY MOUTH EVERY DAY SOLD: 07/19/2019 [facility] 1.25 mg 07/18/2019 12:00:00 AM EDT capsule 30 TAKE ONE CAPSULE BY MOUTH EVERY DAY TAKE ONE CAPSULE BY MOUTH EVERY DAY SOLD: 08/18/2019 [facility] 1.25 mg 02/13/2019 12:00:00 AM EST capsule 30 TAKE ONE CAPSULE BY MOUTH EVERY DAY TAKE ONE CAPSULE BY MOUTH EVERY DAY SOLD: 03/24/2019 [facility] Insurance Providers Payer name Policy type / Coverage type Policy ID Covered constitution party ID Covered constitution party's relationship to coronado Policy [place] Plan Information CRAIG [id number] SP [id number] [place] [id number] S [id number] [place] [id number] Other [id number] CRAIG MEDICAID [id number] [place] [id number] CRAIG [id number] SP [id number] [place] [employer] Commercial [id number] Self [id number] Craig Care Commercial [id number] Self [id number] Craig Care Commercial [id number] Self [id number] Craig Medicaid/CHP/FHP Commercial [id number] Self [id number] CRAIG MEDICAID PI PI Craig Medicaid/CHP/FHP Commercial [id number] Self [id number] [place]ARE [place] O [id number] S [id number] Craig Medicaid/CHP/FHP Commercial [id number] Self [id number] [place]/CHP/FHP Commercial [id number] Self [id number] CRAIG CARE [id number] S [id number] [place] [id number] Self [id number] [place] [id number] Self [id number] Craig Medicaid/CHP/FHP Commercial Self Craig Medicaid F [id number] SELF 7 [id number] [place] [id number] S [id number] [place] - Medicaid o Health Maintenance Organization (HMO) Self [facility] [id number] MEDICAID [id number] SP [id number] MEDICAID -RECURRING [id number] 1 [id number] MEDICAID -O/P [id number] MEDICAID -PHYSICIAN [id number] 1 [id number] MEDICAID M [id number] Self [id number] SELFPAY 5 UNAVAILABLE 1 UNAVAILA BLE MEDICAID 3 [id number] MEDICAID -O/P [id number] Problems, Conditions, and Diagnoses Code Display Name Description Problem Type Effective Dates Data Source(s) 642890026166223 Coronary arteriosclerosis in patient with history of previous myocardial infarction Coronary arteriosclerosis in patient wit h history of previous myocardial infarction Problem 12/18/2019 12:00:00 AM EDT DC FIONA ([facility]) [id number] Pacemaker battery depletion Pacemaker battery depletio n Problem 12/18/2019 12:00:00 AM EDT MEDCORNELIA ([facility]) [id number] Cardiac pacemaker in situ Cardiac pacemaker in situ Pr oblem 12/18/2019 12:00:00 AM EDT MEDENT ([facility]) F33.2 Major depressive disorder, recurrent sev ere without psychotic features Major depressive disorder, recurrent sev Diagnosis 02/03/2020 01:33:17 PM [facility] R55 Syncope and collapse Syncope and collapse Diagnosis 02/03/2020 01:33:17 PM [facility] I95.1 Orthostatic hypotension Orthostatic hypotension Diagno sis 02/03/2020 01:33:17 PM [facility] K21.9 Gastro-esophageal reflux disease without esophagitis Gastro-esophageal reflux disease without Diagnosis 02/03/2020 01:33:17 PM [facility] J44.9 Chronic obstructive pulmonary disease, u nspecified Chronic obstructive pulmonary disease, u Diagnosis 02/03/2020 01:33:17 PM [facility] M19.90 Unspecified osteoarthritis, unspecified site Unspecified osteoarthritis, unspecified Diagnosis 02/03/2020 01:33:17 PM [facility] I25.2 Old myocardial infarction Old myocardial infarction Di agnosis 02/03/2020 01:33:17 PM [facility] I25.10 Atherosclerotic heart diseas e of [place] coronary artery without angina pectoris Atherosclerotic heart disease of [place] Diagnosis 02/03/2020 01:33:17 PM [facility] E78.5 Hyperlipidemia, unspecified Hyperlipidemia, unspecifie d Diagnosis 02/03/2020 01:33:17 PM [facility] I42.9 Cardiomyopathy, unspecified Cardiomyopathy, unspecifie d Diagnosis 02/03/2020 01:33:17 PM [facility] I49.5 Sick sinus syndrome Sick sinus syndrome Diagnosis 1 04/04/2019 01:33:17 PM [facility] Z95.0 Presence of cardiac pacemaker Presence of cardiac pace maker Diagnosis 02/03/2020 01:01:07 PM EST [facility] R07.2 Precordial pain Precordial pain Diagnosis 11/26/2019 12:4 2:41 PM EDT [facility] R59.1 Generalized enlarged lymph nodes GENERALIZED ENL ARGED LYMPH NODES Diagnosis 05/16/2019 09:31:00 AM [facility] Surgeries/Procedures Procedure Description Date Indications Data Source(s) ECG ROUTINE ECG W/LEAST 12 LDS W/I&R 12/18/2019 12:00: 00 AM EDT MEDENT ([facility]) Needle electromyography, each extremity, with related paraspinal areas, when performed, done with nerve conduction, amplitude and latency/velocity study; complete, five or more muscles studied, innervated by three or more nerves or four or more spinal levels (list separately in addition to the code for primary procedure). 05/27/2019 12:00:00 AM EDT MEDEN T ([facility], ) Needle electromyography, each extremity, with related paraspinal areas, when performed, done with nerve conduction, amplitude and latency/velocity study; complete, five or more muscles studied, innervated by three or more nerves or four or more spinal levels (list separately in addition to the code for primary procedure). 05/27/2019 12:00:00 AM EDT MEDEN T ([facility], ) Nerve Conduction 11-12 Studies 05/27/2019 12:00:00 AM EDT MEDENT ([facility], ) CT SOFT TISSUE NECK W/CONTRAST MATERIAL CT SOFT TISSUE NECK W/DYE 05/16/2019 12:00:00 AM [facility] Low osmolar contrast material, 300-399 mg/ml iodine concentr ation, per ml 05/16/2019 12:00:00 AM [facility] Results ID Date Data Source [id number] 04/13/2020 04:17:00 PM EST [facility] Name Value Range Interpretation Code Description Data Hawa rce(s) Supporting Document(s) Respiratory specimen severe acute respir atory syndrome coronavirus 2 (SARS-CoV-2) RNA Negative (qualifier value) [facility] This lab was ordered by [facility] and reported by . ID Date Data Source [id number] 03/09/2020 05:20:00 PM [facility] Value Range Interpretation Code Description Data Hawa rce(s) Supporting Document(s) ESR result 7 mm/hr 0-20 Normal (applies to non-numeric resul ts) [facility] Test Performed By: [facility] [address] [place] [address] Director: Pepe Mcnamara MD ID Date Data Source [id number] 03/09/2020 11:56:00 PM [facility] Value Range Interpretation Code Description Data Hawa rce(s) Supporting Document(s) FESAT Iron result 97 ug/dL 37-170 Normal (applies to non-numeri c results) [facility] Test Performed By: [facility] [address] [place] [address] Director: Pepe Mcnamara MD FESAT TIBC result 306 ug/dL 265-497 Normal (applies to non-numeri c results) [facility] Test Performed By: [facility] [address] [place] [address] Director: Pepe Mcnaamra MD FESAT %Iron Saturation result 12.0-55.0 No rmal (applies to non-numeric results) [facility] Test Performed By: [facility] [address] [place] [address] Director: Pepe Mcnamara MD ID Date Data Source [id number] 03/09/2020 11:56:00 PM [facility] Value Range Interpretation Code Description Data Hawa rce(s) Supporting Document(s) Ferritin result 61 ng/mL 11.1-264.0 Normal (applies to non-numeric results) [facility] Test Performed By: [facility] [address] [place] [address] Director: Pepe Mcnamara MD ID Date Data Source [id number] 03/09/2020 11:56:00 PM [facility] Value Range Interpretation Code Description Data Hawa rce(s) Supporting Document(s) Vitamin B12 result 544 pg/mL 193-986 Normal (applies to non-numer ic results) [facility] Test Performed By: [facility] [address] [place] [address] Director: Pepe Mcnamara MD ID Date Data Source [id number] 03/09/2020 11:56:00 PM [facility] Name Value Range Interpretation Code Description Data Hawa rce(s) Supporting Document(s) Folate result 2.76-20.0 Normal (applies to non-numeric re sults) [facility] Test Performed By: [facility] [address] [place] [address] Director: Pepe Mcnamara MD ID Date Data Source [id number] 03/09/2020 04:09:00 PM EST [facility] Name Value Range Interpretation Code Description Data Hawa rce(s) Supporting Document(s) Erythrocyte Sedimentation ESR 7 mm/hr 0-20 No rmal (applies to non-numeric results) [facility] Test Performed By: [facility] [address] [place] [address] Director: Pepe Mcnamara MD ID Date Data Source [id number] 03/09/2020 01:46:00 PM [facility] Value Range Interpretation Code Description Data Hawa rce(s) Supporting Document(s) Iron FE Level 97 ug/dL 37-170 Normal (applies to non-numeric re sults) [facility] Test Performed By: [facility] [address] [place] [address] Director: Pepe Mcnamara MD Total Iron Binding Capacity 306 ug/dL 265-497 Norm al (applies to non-numeric results) [facility] Test Performed By: [facility] [address] [place] [address] Director: Pepe Mcnamara MD %Iron Saturation 12.0-55.0 Normal (applies to non-numeric results) [facility] Test Performed By: [facility] [address] [place] [address] Director: Pepe Mcnamara MD ID Date Data Source [id number] 03/09/2020 01:46:00 PM EST [facility] Name Value Range Interpretation Code Description Data Hawa rce(s) Supporting Document(s) Folate 2.76-20.0 Normal (applies to non-numeric resul ts) [facility] Test Performed By: [facility] [address] [place] [address] Director: Pepe Mcnamara MD ID Date Data Source [id number] 03/09/2020 01:46:00 PM [facility] Name Value Range Interpretation Code Description Data Hawa rce(s) Supporting Document(s) Ferritin 61 ng/mL 11.1-264.0 Normal (applies to non-numeric resul ts) [facility] Test Performed By: [facility] [address] [place] [address] Director: Pepe Mcnamara MD ID Date Data Source [id number] 03/09/2020 01:46:00 PM [facility] Name Value Range Interpretation Code Description Data Hawa rce(s) Supporting Document(s) Vitamin B12 544 pg/mL 193-986 Normal (applies to non-numeric resu lts) [facility] Test Performed By: [facility] [address] [place] [address] Director: Pepe Mcnamara MD ID Date Data Source [id number] 03/09/2020 09:39:00 AM [facility] Name Value Range Interpretation Code Description Data Hawa rce(s) Supporting Document(s) Sodium 142 mmol/L 136-145 Normal (applies to non-numeric resul ts) [facility] Potassium 3.5-5.1 Normal (applies to non-numeric resul ts) [facility] Chloride 105 mmol/L 98-107 Normal (applies to non-numeric resul ts) [facility] Carbon Dioxide CO2 21-32 Normal (applies to non-numer ic results) [facility] Anion Gap 5.0-16.0 Normal (applies to non-numeric resul ts) [facility] BUN 16 mg/dL 7-18 Normal (applies to non-numeric results) [facility] Creatinine,Serum 0.7-1.2 Normal (applies to non-numeric results) [facility] GFR >60 Normal (applies to non-numeric results) [facility] Glucose Level 118 mg/dL 60-99 Above high normal [facility] Reference range is only applicable when patient is fasting Note the following drug interference: Sulfasalazine Sulfapyridine Can see falsely depressed Can see falsely elevated result with up to 17% results with up to 11% decrease in measurement increase in measurement Recommend patients be collected for this test prior to administration of either drug. Calcium 8.5-10.1 Normal (applies to non-numeric resul ts) [facility] Bilirubin,Total 0.1-1.9 Normal (applies to non-numeric results) [facility] SGOT(AST) 43 U/L 15-37 Above high normal [facility]ital Note the following drug interference: Sulfasalazine Sulfapyridine Can see falsely depressed Can see falsely elevated result with up to 10% results with up to 10% decrease in measurement increase in measurement Recommend patients be collected for this test prior to administration of either drug. SGPT(ALT) 76 U/L 12-78 Normal (applies to non-numeric resul ts) [facility] Note the following drug interference: Sulfasalazine Sulfapyridine Can see falsely depressed Can see falsely elevated result with up to 29% results with up to 10% decrease in measurement increase in measurement Recommend patients be collected for this test prior to administration of either drug. Alkaline Phosphatase 127 U/L 38-126 Above high normal [facility] can increase Alkaline Phosp le vels up to 2 times the normal adult value. Normal values for children and adolescents are 2 to 3 times the normal adult value. Total Protein 6.0-8.2 Normal (applies to non-numeric re sults) [facility] Albumin Level 3.4-5.0 Normal (applies to non-numeric re sults) [facility] ID Date Data Source [id number] 03/09/2020 09:40:00 AM EST [facility] Name Value Range Interpretation Code Description Data Hawa rce(s) Supporting Document(s) Free T4 (Free Thyroxine) 0.76-1.46 Normal (applies to non -numeric results) [facility] ID Date Data Source [id number] 03/09/2020 09:40:00 AM [facility] Name Value Range Interpretation Code Description Data Hawa rce(s) Supporting Document(s) Magnesium 1.8-2.4 Normal (applies to non-numeric resul ts) [facility] ID Date Data Source [id number] 03/09/2020 09:40:00 AM EST [facility] Name Value Range Interpretation Code Description Data Hawa rce(s) Supporting Document(s) Thyroid Stimulate Hormone TSH 0.358-3.74 No rmal (applies to non-numeric results) [facility] ID Date Data Source [id number] 03/09/2020 09:31:00 AM [facility] Name Value Range Interpretation Code Description Data Hawa rce(s) Supporting Document(s) White Blood Count 3.5-10.5 Normal (applies to non-numeri c results) [facility] Red Blood Count 3.90-5.00 Normal (applies to non-numeric results) [facility] Hemoglobin 12.0-15.5 Normal (applies to non-numeric resul ts) [facility] Hematocrit 34.9-44.5 Normal (applies to non-numeric resul ts) [facility] Mean Corpuscular Volume 81.2-95.1 Normal (applies to non- numeric results) [facility] Mean Corpuscular Hgb 25.6-32.2 Normal (applies to non-num ja results) [facility] Mean Corpuscular Hgb Conc 32.0-36.0 Normal (applies to no n-numeric results) [facility] Red Cell Distribution Width 11.9-15.5 Normal (appli es to non-numeric results) [facility] Platelet Count 239 x10 3/uL 150-450 Normal (applies to non-numeric results) [facility] Mean Platelet Volume 9.4-12.4 Normal (applies to non-num ja results) [facility] Neutrophils% (Auto) 31.0-71.0 Normal (applies to non-nume marisa results) [facility] Lymphocytes% (Auto) 20.0-55.0 Normal (applies to non-nume marisa results) [facility] Monocytes% (Auto) 4.0-12.0 Normal (applies to non-numeri c results) [facility] Eosinophils% (Auto) 1.0-8.0 Normal (applies to non-nume marisa results) [facility] Basophils% (Auto) 0.0-2.0 Normal (applies to non-numeri c results) [facility] Immature Granulocytes% (Auto) 0.0-2.0 Normal (irina lies to non-numeric results) [facility] Neutrophils# (Auto) 1.50-6.20 Normal (applies to non-nume marisa results) [facility] Lymphocytes# (Auto) 1.20-4.00 Normal (applies to non-nume marisa results) [facility] Monocytes# (Auto) 0.00-0.90 Normal (applies to non-numeri c results) [facility] Eosinophils# (Auto) 0.00-0.50 Normal (applies to non-nume marisa results) [facility] Basophils# (Auto) 0.00-0.20 Normal (applies to non-numeri c results) [facility] Immature Granulocytes# (Auto) 0.00-7.00 No rmal (applies to non-numeric results) [facility] ID Date Data Source [id number] 02/05/2020 09:51:21 PM EST [facility] Name Value Range Interpretation Code Description Data Hawa rce(s) Supporting Document(s) &PDF [facility] [id number]/GFKbhYHDzf2TcUYeeNTi2PKtwCJJmS4YpdAnqMLcJCoJCQraGLMYUF1VqQOIw vci [file] [facility]+Om405Oxx+44cg5yh3hNyhxKzMSAD/gXdXw/XYPXXHlxF2tBtAijWjfRvqwjEiYl8mnVdV9/G2C0w [file] ICAgICAgICAgICAgICAgICAgICAgICAgICAgICAgIC AgICAgICAgICAgICAgICAgICAgICAgICAgICAgICAgICAgICAgICAgICAgICAgDQogICAgICAgICAgIC AgICAgICAgICAgICAgICAgICAgICAgICAgICAgICAgICAgICAgICAgICAgICAgICAgICAgICAgICAgIC AgICAgICAgICAgICAgICAgICAgICAgICAgICAgDQog ICAgICAgICAgICAgICAgICAgICAgICAgICAgICAgICAgICAgICAgICAgICAgICAgICAgICAgICAgICAg ICAgICAgICAgICAgICAgICAgICAgICAgICAgICAgICAgICAgICAgDQogICAgICAgICAgICAgICAgICAg ICAgICAgICAgICAgICAgICAgICAgICAgICAgICAgIC AgICAgICAgICAgICAgICAgICAgICAgICAgICAgICAgICAgICAgICAgICAgICAgICAgDQogICAgICAgIC AgICAgICAgICAgICAgICAgICAgICAgICAgICAgICAgICAgICAgICAgICAgICAgICAgICAgICAgICAgIC AgICAgICAgICAgICAgICAgICAgICAgICAgICAgICAg DQogICAgICAgICAgICAgICAgICAgICAgICAgICAgICAgICAgICAgICAgICAgICAgICAgICAgICAgICAg ICAgICAgICAgICAgICAgICAgICAgICAgICAgICAgICAgICAgICAgICAgDQogICAgICAgICAgICAgICAg ICAgICAgICAgICAgICAgICAgICAgICAgICAgICAgIC AgICAgICAgICAgICAgICAgICAgICAgICAgICAgICAgICAgICAgICAgICAgICAgICAgICAgDQogICAgIC AgICAgICAgICAgICAgICAgICAgICAgICAgICAgICAgICAgICAgICAgICAgICAgICAgICAgICAgICAgIC AgICAgICAgICAgICAgICAgICAgICAgICAgICAgICAg ICAgDQogICAgICAgICAgICAgICAgICAgICAgICAgICAgICAgICAgICAgICAgICAgICAgICAgICAgICAg ICAgICAgICAgICAgICAgICAgICAgICAgICAgICAgICAgICAgICAgICAgICAgDQogICAgICAgICAgICAg ICAgICAgICAgICAgICAgICAgICAgICAgICAgICAgIC IbBWQqPRNuRKSbPLVoIKGfIPYrUYOuKZDyORVpPIMqEDApKQNcHFHwCPKrLQIwALJcUEAhNTPcRLk8X7 vfBUQbDLMwMW8bUCo3Ex2+MMbFUoGqUJW3ooRxeX0SZI3kx1BuXBgsYITuv3JsOJh7PJ5RXVSiFOzoFE 9ZPIjwkb6FHFQoSZEfvPBMt6tuVcLfMST9JWSsWquy LR7RPSXeH8gqwzDxENVhGBXLEKhwLDHWKH6ZXzUzM0YtdY85BKPTYo1+WKulvwYgDbiROqP7WWFzz5Xf KRd6GP2LYQVwKFdmJQ9OVWPhqN4cMUkdHJ0QRsMaKWTiHRVCBwZkX85vhWFuXEz8T3MpPkSlWUVsEoka ZXMgPDwvTmFtZXMgWyBdDQogID4+ID4+EUnaGO2GDJ dsinKhUAHzBr8ZBRXbMCP2AHJifBVoNvEmPJRFQSpkBH5BaCCiEYS5gV0eKZvbGLJyMGPjS5eLKcNdiF aqMI82fVivwyPjrFHmKWm+Dn9LSP1uj4OaCDt5diZjNHztJWI4ENbnVGMtSEBoXYBcMQG8HOT7XFTVMy OyDSKpOOLiOWbpXMPgYYVlup7QUTVsKUQrCcdcZfYv IRSdAENfLYdmQMOhGOM0RQorXCRfHNNuHZ2CNgZaYCCbZAKlQMNyDRLtXDHvkj2NSLHzPNIcFhS7FjYk DBFnCDIkXTqcHXYzNYAoMDvbIGEcTXRgFW9EKzIbWLWiYNWkECOsIGRaVMJntx1LIWOcLDTmZXJ4KDAa MVLzFRJrXFkmGWHeQNQ6ChX5HJEdESKuHN9NNlHjCZ PnMTS3GEBzCKEsWDZpcm2IZGArMRIlNYG3KKRoZCQcDETyOPsnJGDfGQB4WSBkZUBaRVFaVB6ALbQmWI FcDBM3YIScAILhZOObbi9CTWFkGTJeJvjtVZXrZYPiSZVcKMtjPQUsSXPdYyr3NVYhCAGrKQ7QRaQaOY FkUMIxZCLiXIItHYVaxg8EZTInQCRwKzRrVTYqZJZe RBCpQFtaZHUiVWFrOJE1MDUrWXMsWI6UCwOlITVjXGQ1ZNQcNECgUGHyqz8EQUGaZYOgUzX9NFDqNGJk MQHnKWmdCPOfQFYbHFZ3DNJhSAZmUS9VYwGzVCHmGSWiIQQuHEDwKVQdtr9EANBzLNXaCTM7SnLlKBXn OJPfJQiwGWInIFJnJgP5LMKaOJQdWJ4OEuNiNSNuUb FuUXSqXWPaAXNfud3TBJWlFUNxBYN3NYYyUSFwOZPuWYc4roZtzJJrWNn4QR3VT7PyoyYnOjiUSp7Gg1 89QAD7RZNdXy8NC9raQx2dINDxHKZNIx7NZKh0NzE4OtEhAzF9YWHuLzkzOOPgRkOgABJaUCznTOJ0AO M+NTmjATznFrE2TfoeR6U6IFV0LMY7FhD1DXNcCNIl WDTrHf0rGJRZHy2+SJhrlGRhrCybJUDSEaS7LlfiDYgzTYRAAx3G ID Date Data Source [id number] 12/28/2019 09:00:00 AM EDT [facility] Name Value Range Interpretation Code Description Data Hawa rce(s) Supporting Document(s) SARS coronavirus 2 RNA [facility] This lab was ordered by [facility] and reported by [facility]. ID Date Data Source [id number] 11/27/2019 10:58:04 PM EDT [facility] Name Value Range Interpretation Code Description Data Hawa rce(s) Supporting Document(s) &PDF [facility] ZVLCBi8sBkYDAjCf47/WZUamCJGve7JyYVgvKJp8QYkxUTRnJ0TddOazQCtUAqJKAcqGUYYCH8LvCHDn oRX [file] 4Npf+xmtPYQPU5vp3uMmO3HpIZdda6Ea/7BT+CwQ0jZn8XBMaNlS+Rxg1zOu9m9f/VlF/E0weoQf+size painter [file] ICAgICAgICAgICAgICAgICAgICAgICAgICAgICAgICAgICAgICAgICAgICAgICAgICAgICAgDQogICAg ICAgICAgICAgICAgICAgICAgICAgICAgICAgICAgIC AgICAgICAgICAgICAgICAgICAgICAgICAgICAgICAgICAgICAgICAgICAgICAgICAgICAgICAgICAgIC AgICAgDQogICAgICAgICAgICAgICAgICAgICAgICAgICAgICAgICAgICAgICAgICAgICAgICAgICAgIC AgICAgICAgICAgICAgICAgICAgICAgICAgICAgICAg ICAgICAgICAgICAgICAgDQogICAgICAgICAgICAgICAgICAgICAgICAgICAgICAgICAgICAgICAgICAg ICAgICAgICAgICAgICAgICAgICAgICAgICAgICAgICAgICAgICAgICAgICAgICAgICAgICAgICAgDQog ICAgICAgICAgICAgICAgICAgICAgICAgICAgICAgIC AgICAgICAgICAgICAgICAgICAgICAgICAgICAgICAgICAgICAgICAgICAgICAgICAgICAgICAgICAgIC AgICAgICAgDQogICAgICAgICAgICAgICAgICAgICAgICAgICAgICAgICAgICAgICAgICAgICAgICAgIC AgICAgICAgICAgICAgICAgICAgICAgICAgICAgICAg ICAgICAgICAgICAgICAgICAgDQogICAgICAgICAgICAgICAgICAgICAgICAgICAgICAgICAgICAgICAg ICAgICAgICAgICAgICAgICAgICAgICAgICAgICAgICAgICAgICAgICAgICAgICAgICAgICAgICAgICAg DQogICAgICAgICAgICAgICAgICAgICAgICAgICAgIC AgICAgICAgICAgICAgICAgICAgICAgICAgICAgICAgICAgICAgICAgICAgICAgICAgICAgICAgICAgIC AgICAgICAgICAgDQogICAgICAgICAgICAgICAgICAgICAgICAgICAgICAgICAgICAgICAgICAgICAgIC AgICAgICAgICAgICAgICAgICAgICAgICAgICAgICAg ICAgICAgICAgICAgICAgICAgICAgDQogICAgICAgICAgICAgICAgICAgICAgICAgICAgICAgICAgICAg ICAgICAgICAgICAgICAgICAgICAgICAgICAgICAgICAgICAgICAgICAgICAgICAgICAgICAgICAgICAg MTHjJCy1E7hjBYWpEPWcYL5jVAl0Yq1+DQoNCmVuZH A8qjHijB1HJB4az9OjBUsuYMNfl7EqATv6KC1LXXHjMTgbYV9RMZzdrz4VRTIiQIAxcJPVn3tvLrLcHJ J9TDGeDaetJD9AFYNiM1bkemNzVVEmAQJLAVmuUJIGAV2XTrYbS5FrsR91LECMUg8+DQplbmRvYmoNCj B3SVVvv0UtULi7PS1ORHZdVHkdDL6YIHHmdV6eJLoy HZ8RJtGkPTDyETHFCdIaE01qsFZbPJz4K1JzRkIsTFBsXuavHCEsOWmpKaLmMUQdAxRdHSvbBJ9+ID4+ AMimSJ8CPNrknuBnPOPmWb8SEJXwJBB2LFPujVGvLhDwCLXKZApbMR9VzTDgKAW2gC4mZRphPYPaKAVk N8wQDfTgxRjfFP18hHtebtNrfDXmJLn+Kc5CUU4nq6 EoDMg4fyKwNMcsLTQ3AEvnUCMpGMWrBOXpUEE8LWQ7MQMTOaUkPAZwAIEpQDpeNETsAWQjpg8IDUInKM HzKsC6OgKeMHHfSYVbROwuDISbOGD0VBN3GHKjBKShSR7KKaQfQSRxQGJiEYObTRUmIMTjzr9OIIYxYL BqIhI5XlVgOAZiVQNeSAlsIAZxLOZfMlV4PEHtKLAn WW0LZrRaKNUhBPZ2VVgsEGCmPJIagz6HZAJsDOMjPEE9FPPyQKWnCVWvPIrfSFRrRHU1SOSdOBKbVBYc DP3MKtZaLQVcNPWsYYVzSRXzREMxjc7FENOxENOdRGQ1TmTwTELnPJZtAXqnWANmPXY3EHK0FOBzLMHz KM5KTsWcDGDfIPR2HHfjIVAeHEZzdc7QSYUtQBVtHn q1LwImSUTnQGUeVUrfCFUkKUSjCjSmRGXoJQCrPM1WYlVeVRPfYJKiTXftQHZwDUBskf2AWSDuGRZyZl DuPMSlZUUpKNSlZCsgTPGlDHXkLPxcIBDnCLHgUQ7EKeSnGEBxDUV2OIxxVOZtECQskc2TNHLaJRJfWu Y4HZYgVTSgNHTyPXiiAJZeHNIfUwD7TMDrEQGqBB1S KyPqPVUaKVC6YKhuNQApBSCmoo0PKTZpPRSbZOZzPyBfJGLjRYWwLNlbDSMaENOjIsZrXZFoPENkCN3B WyMjQZDfIgJdLfxhIKVsYSHpcr2FRCWlFZNvJKJtUKInTCXwAJQoCBw5xtRxeKNvPLm0MX1FO1WyajFq OjdVEe7Fh077YQE2PYSzQf8UP8izYq4dYRBgIJXTPs 3DPKb7JDIlYSUnCKLpHKvrGZQ6HIW9HWH8KFKtI7DcCJZ8XmA+TUlmPdVnDtCvIPM4KIV9WsJ0DnBtRV P4OoMgCoFiHbAfRY8oBLTNGo0+GYxuuWPdwAnxXHUMTxG0Rhs3CLpyZUBLVa6H ID Date Data Source [id number] 11/07/2019 09:01:00 AM [facility] Imaging Services Department Imaging Report [address] [place] [address] %(RAD)RES..mtdd.print.filter("line") Name: MADELEINE YEBOAH : 1965 Age/Sex: 54F Ordering Provider: Josue Hanna, DO Med Rec #: [id number] Reg Status: DEP REF Room #: Date of Service: 11/05/19 Report Number: [id number] cc:Josue Miller Reason, DO Send Report To: [id number] XRP/XR Knees Bilat Min 4 View Each Reason for exam: SPRAIN UNSPEC SITE OF KNEE FINDINGS: Moderate osteoarthritic changes are noted. There is no fracture, subluxation, focal osseous lesion or periosteal reaction. There is a small joint effusion. IMPRESSION: Moderate osteoarthritic changes. Tiny joint effusion. No fracture or dislocation. Time portable performed: Fluoroscopy time in seconds: Number of Exposures: Contrast Agent in ml: Method of Administration: REPORT SIGNATURE ON FILE Reported By: Talia Elise MD <Electronically signed by Talia Elise MD> 11/07/19 1127 Dictation Date/Time: 11/07/19 0851 Transcribed Date/Time: 11/07/19 0901 Coating Inspector: JW Name Value Range Interpretation Code Description Data Hawa rce(s) Supporting Document(s) ID Date Data Source [id number] 09/26/2019 11:46:00 AM EDT [facility] Name Value Range Interpretation Code Description Data Hawa rce(s) Supporting Document(s) Blood Urea Nitrogen 16 [facility] Creatinine 0.90 [facility] Glucose 110 [facility] Chloride 106 [facility] Sodium 144 [facility] Potassium 4.6 [facility] Glomerular filtration rate/1.73 sq M.pre dicted [Volume Rate/Area] in Serum or Plasma by Creatinine-based formula (MDRD) 60 [facility] ([facility]) Carbon Dioxide 30 [facility] Calcium 9.1 [facility] ID Date Data Source [id number] 09/26/2019 02:39:00 PM EDT [facility] Name Value Range Interpretation Code Description Data Hawa rce(s) Supporting Document(s) FESAT Iron result 95 ug/dL 37-170 Normal (applies to non-numeri c results) [facility] Test Performed By: [facility] [address] [place] [address] Director: Pepe Mcnamara MD FESAT TIBC result 358 ug/dL 265-497 Normal (applies to non-numeri c results) [facility] Test Performed By: [facility] [address] [place] [address] Director: Pepe Mcnamara MD FESAT %Iron Saturation result 12.0-55.0 No rmal (applies to non-numeric results) [facility] Test Performed By: [facility] [address] [place] [address] Director: Pepe Mcnamara MD ID Date Data Source [id number] 09/26/2019 02:39:00 PM EDT [facility] Value Range Interpretation Code Description Data Hawa rce(s) Supporting Document(s) Ferritin result 20 ng/mL 11.1-264.0 Normal (applies to non-numeric results) [facility] Test Performed By: [facility] [address] [place] [address] Director: Pepe Mcnamara MD ID Date Data Source [id number] 09/26/2019 02:39:00 PM EDT [facility] Name Value Range Interpretation Code Description Data Hawa rce(s) Supporting Document(s) Vitamin B12 result 979 pg/mL 193-986 Normal (applies to non-numer ic results) [facility] Test Performed By: [facility] [address] [place] [address] Director: Pepe Mcnamara MD ID Date Data Source [id number] 09/26/2019 02:39:00 PM EDT [facility] Value Range Interpretation Code Description Data Hawa rce(s) Supporting Document(s) Folate result 2.76-20.0 Normal (applies to non-numeric re sults) [facility] Test Performed By: [facility] [address] [place] [address] Director: Pepe Mcnamara MD ID Date Data Source [id number] 09/26/2019 02:17:00 PM EDT [facility] Value Range Interpretation Code Description Data Hawa rce(s) Supporting Document(s) Iron FE Level 95 ug/dL 37-170 Normal (applies to non-numeric re sults) [facility] Test Performed By: [facility] [address] [place] [address] Director: Pepe Mcnamara MD Total Iron Binding Capacity 358 ug/dL 265-497 Norm al (applies to non-numeric results) [facility] Test Performed By: [facility] [address] [place] [address] Director: Pepe Mcnamara MD %Iron Saturation 12.0-55.0 Normal (applies to non-numeric results) [facility] Test Performed By: [facility] [address] [place] [address] Director: Pepe Mcnamara MD ID Date Data Source [id number] 09/26/2019 02:17:00 PM EDT [facility] Value Range Interpretation Code Description Data Hawa rce(s) Supporting Document(s) Ferritin 20 ng/mL 11.1-264.0 Normal (applies to non-numeric resul ts) [facility] Test Performed By: [facility] [address] [place] [address] Director: Pepe Mcnamara MD ID Date Data Source [id number] 09/26/2019 02:17:00 PM EDT [facility] Value Range Interpretation Code Description Data Hawa rce(s) Supporting Document(s) Vitamin B12 979 pg/mL 193-986 Normal (applies to non-numeric resu lts) [facility] Test Performed By: [facility] [address] [place] [address] Director: Pepe Mcnamara MD ID Date Data Source [id number] 09/26/2019 02:17:00 PM EDT [facility] Value Range Interpretation Code Description Data Hawa rce(s) Supporting Document(s) Folate 2.76-20.0 Normal (applies to non-numeric resul ts) [facility] Test Performed By: [facility] [address] [place] [address] Director: Pepe Mcnamara MD ID Date Data Source [id number] 09/26/2019 10:44:00 AM EDT [facility] Name Value Range Interpretation Code Description Data Hawa rce(s) Supporting Document(s) White Blood Count 3.5-10.5 Normal (applies to non-numeri c results) [facility] Red Blood Count 3.90-5.00 Normal (applies to non-numeric results) [facility] Hemoglobin 12.0-15.5 Normal (applies to non-numeric resul ts) [facility] Hematocrit 34.9-44.5 Normal (applies to non-numeric resul ts) [facility] Mean Corpuscular Volume 81.2-95.1 Normal (applies to non- numeric results) [facility] Mean Corpuscular Hgb 25.6-32.2 Normal (applies to non-num ja results) [facility] Mean Corpuscular Hgb Conc 32.0-36.0 Normal (applies to no n-numeric results) [facility] Red Cell Distribution Width 11.9-15.5 Normal (appli es to non-numeric results) [facility] Platelet Count 221 x10 3/uL 150-450 Normal (applies to non-numeric results) [facility] Mean Platelet Volume 9.4-12.4 Normal (applies to non-num ja results) [facility] Neutrophils% (Auto) 31.0-71.0 Normal (applies to non-nume marisa results) [facility] Lymphocytes% (Auto) 20.0-55.0 Normal (applies to non-nume marisa results) [facility] Monocytes% (Auto) 4.0-12.0 Normal (applies to non-numeri c results) [facility] Eosinophils% (Auto) 1.0-8.0 Above high normal [facility] Basophils% (Auto) 0.0-2.0 Normal (applies to non-numeri c results) [facility] Immature Granulocytes% (Auto) 0.0-2.0 Normal (irina lies to non-numeric results) [facility] Neutrophils# (Auto) 1.50-6.20 Normal (applies to non-nume marisa results) [facility] Lymphocytes# (Auto) 1.20-4.00 Normal (applies to non-nume marisa results) [facility] Monocytes# (Auto) 0.00-0.90 Normal (applies to non-numeri c results) [facility] Eosinophils# (Auto) 0.00-0.50 Above high normal [facility] Basophils# (Auto) 0.00-0.20 Normal (applies to non-numeri c results) [facility] Immature Granulocytes# (Auto) 0.00-7.00 No rmal (applies to non-numeric results) [facility] Slide has been reviewed and findings con firmed by a technologist/cable television line technician. ID Date Data Source [id number] 09/26/2019 09:53:00 AM EDT [facility] Name Value Range Interpretation Code Description Data Hawa rce(s) Supporting Document(s) Sodium 144 mmol/L 136-145 Normal (applies to non-numeric resul ts) [facility] Potassium 3.5-5.1 Normal (applies to non-numeric resul ts) [facility] Chloride 106 mmol/L 98-107 Normal (applies to non-numeric resul ts) [facility] Carbon Dioxide CO2 21-32 Normal (applies to non-numer ic results) [facility] Anion Gap 5.0-16.0 Normal (applies to non-numeric resul ts) [facility] BUN 16 mg/dL 7-18 Normal (applies to non-numeric results) [facility] Creatinine,Serum 0.7-1.2 Normal (applies to non-numeric results) [facility] GFR >60 Normal (applies to non-numeric results) [facility] Glucose Level 110 mg/dL 60-99 Above high normal [facility] Reference range is only applicable when patient is fasting Note the following drug interference: Sulfasalazine Sulfapyridine Can see falsely depressed Can see falsely elevated result with up to 17% results with up to 11% decrease in measurement increase in measurement Recommend patients be collected for this test prior to administration of either drug. Calcium 8.5-10.1 Normal (applies to non-numeric resul ts) [facility] ID Date Data Source [id number] 09/05/2019 08:15:31 AM EDT [facility] Name Value Range Interpretation Code Description Data Hawa rce(s) Supporting Document(s) &PDF [facility] [id number] yKE [file] [id number] ID Date Data Source [id number] 07/31/2019 04:07:00 PM EDT [facility] COVID-19 Specimen Source NASOPHARYNGEAL Is Patient admitted or to be admitted? N Name Value Range Interpretation Code Description Data Hawa rce(s) Supporting Document(s) SARS-CoV-2 RNA Negative Normal (applies to non-numeric r esults) [facility] 2019-novel Coronavirus (2019-nCoV) not d etected by the qRT-PCR assay. Consider testing for other respiratory viruses or re-collecting for 2019-nCoV testing. Note: Optimum timing for peak viral levels during infections caused by 2019- nCoV have not been determined. Collection of multiple specimens from the same patient may be necessary to detect the virus. Limitations Positive results are indicative of active infection with SARS-CoV-2 but do not rule out bacterial infection or co-infection with other viruses. The agent detected may not be the definite cause of disease. In addition, detection of viral RNA may not indicate the presence of infectious virus or that SARS-CoV-2 is the causative agent for clinical symptoms. Negative results do not preclude SARS-CoV-2 infection and should not be used as the sole basis for patient management decisions. Negative results must be combined with clinical observations, patient history, and epidemiological information. False negative results may also occur if amplification inhibitors are present in the specimen or if inadequate numbers of organisms are present in the specimen. Optimum specimen types and timing for peak viral levels during infections caused by SARS-CoV-2 have not been fully determined. Collection of multiple specimens (types and time points) from the same patient may be necessary to detect the virus. The test was validated for use with upper respiratory specimens obtained via nasopharyngeal or oropharyngeal swabs in VTM, UTM, M4, M5, M6, saline, and MTM media. The performance of this test has not been established for other specimens. Specimens collected using other FDA recommended Specimen Collection Materials listed in the FDA COVID-19 [employer] communication (June 13, 2019) are processed with the caveat that they were not all validated for use with this test and the result must be interpreted in this context. Furthermore, a false negative results may occur if a specimen is improperly collected, transported or handled. If the virus mutates in the RT- PCR target region, SARS-CoV-2 may not be detected or may be detected less predictably. Inhibitors or other types of interference may produce a false negative result. An interference study evaluating the effect of common cold medications was not performed. This test is not FDA-cleared but its performance characteristics were established by our CLIA-certified, CAP-accredited, high complexity laboratory in accordance with CLIA regulations, [employer] [place] [employer] (CAP) guidelines (Jun 06, 2019), and FDA guidance (May 18, 2019). This test is only for use under the Food and Drug Administration's Emergency Use Authorization. THIS IS A STATE REPORTABLE COMMUNICABLE DISEASE. Performing Lab Normal (applies to non-numeric r esults) [facility] Is Patient Admitted or Awaiting Admissio n?:N COVID-19 Specimen Source: KILN PUSHER NOTE: RESULTS HAVE BEEN REFORMATTED PLEASE REVIEW RESULTS CAREFULLY THE LOCATION OF INFORMATION MAY HAVE CHANGED Test performed or referred by The [address] [address] ID Date Data Source [id number] 07/31/2019 03:59:00 PM EDT [facility] COVID-19 Specimen Source NASOPHARYNGEAL Is Patient admitted or to be admitted? N Name Value Range Interpretation Code Description Data Hawa rce(s) Supporting Document(s) SARS-CoV-2 RNA Negative Normal (applies to non-numeric r esults) [facility] 2019-novel Coronavirus (2019-nCoV) not d etected by the qRT-PCR assay. Consider testing for other respiratory viruses or re-collecting for 2019-nCoV testing. Note: Optimum timing for peak viral levels during infections caused by 2019- nCoV have not been determined. Collection of multiple specimens from the same patient may be necessary to detect the virus. Limitations Positive results are indicative of active infection with SARS-CoV-2 but do not rule out bacterial infection or co-infection with other viruses. The agent detected may not be the definite cause of disease. In addition, detection of viral RNA may not indicate the presence of infectious virus or that SARS-CoV-2 is the causative agent for clinical symptoms. Negative results do not preclude SARS-CoV-2 infection and should not be used as the sole basis for patient management decisions. Negative results must be combined with clinical observations, patient history, and epidemiological information. False negative results may also occur if amplification inhibitors are present in the specimen or if inadequate numbers of organisms are present in the specimen. Optimum specimen types and timing for peak viral levels during infections caused by SARS-CoV-2 have not been fully determined. Collection of multiple specimens (types and time points) from the same patient may be necessary to detect the virus. The test was validated for use with upper respiratory specimens obtained via nasopharyngeal or oropharyngeal swabs in VTM, UTM, M4, M5, M6, saline, and MTM media. The performance of this test has not been established for other specimens. Specimens collected using other FDA recommended Specimen Collection Materials listed in the FDA COVID-19 [employer] communication (June 13, 2019) are processed with the caveat that they were not all validated for use with this test and the result must be interpreted in this context. Furthermore, a false negative results may occur if a specimen is improperly collected, transported or handled. If the virus mutates in the RT- PCR target region, SARS-CoV-2 may not be detected or may be detected less predictably. Inhibitors or other types of interference may produce a false negative result. An interference study evaluating the effect of common cold medications was not performed. This test is not FDA-cleared but its performance characteristics were established by our CLIA-certified, CAP-accredited, high complexity laboratory in accordance with CLIA regulations, [employer] [place] [employer] (CAP) guidelines (Jun 06, 2019), and FDA guidance (May 18, 2019). This test is only for use under the Food and Drug Administration's Emergency Use Authorization. THIS IS A STATE REPORTABLE COMMUNICABLE DISEASE. Performing Lab Normal (applies to non-numeric r esults) [facility] Is Patient Admitted or Awaiting Admissio n?:N COVID-19 Specimen Source: KILN PUSHER NOTE: RESULTS HAVE BEEN REFORMATTED PLEASE REVIEW RESULTS CAREFULLY THE LOCATION OF INFORMATION MAY HAVE CHANGED Test performed [place] [address] ID Date Data Source [id number] 07/29/2019 12:00:00 AM EDT [facility] Name Value Range Interpretation Code Description Data Hawa rce(s) Supporting Document(s) SARS coronavirus 2 RNA:PrThr:Pt:XXX:Ord:Probe.amp.tar [place] This lab was ordered by [facility] and reported by [facility]. ID Date Data Source [id number] 05/16/2019 02:53:00 PM [facility] Imaging Services Department Imaging Report [address] [place] [id number] %(RAD)RES..mtdd.print.filter("line") Name: MADELEINE YEBOAH : 1965 Age/Sex: 53F Ordering Provider: Josue Miller Reason, Med Rec #: [id number] Reg Status: DEP REF Room #: Date of Service: 05/16/19 Report Number: [id number] cc:Josue Miller Reason, DO Send Report To: [id number] CT/CT Neck Soft Tissue w Contrast Reason for exam: ENLARGED LYMPH NODES FINDINGS: Skull base appears normal. The parotid and parapharyngeal spaces appear normal. The submandibular glands and the submandibular triangles within normal limits. There are a few small nonspecific nodes identified at level 2 bilaterally There are no signs of any level 3 nodes or any level 4 nodes. Thoracic inlet appears normal. Lung apices are clear. Thyroid gland appears normal. no other significant findings. IMPRESSION: Nonspecific nodes. While performing the above CT exam, the following dose reduction techniques wereused: *Automated exposure control *Adjustment of the mA and/or kV according to patient size *Use of iterative reconstruction technique CT Dose in mGy: 6.21 Contrast Agent: Isovue 300 Amount in ml: 75 Method of Administration: Intraveneous REPORT SIGNATURE ON FILE Reported By: Lonnie Girard MD <Electronically signed by Margarita Girard MD> 05/17/19 0934 Dictation Date/Time: 05/16/19 1144 Transcribed Date/Time: 05/16/19 1453 Coating Inspector: BARAK Name Value Range Interpretation Code Description Data Hawa rce(s) Supporting Document(s) ID Date Data Source [id number] 05/09/2019 05:40:00 AM [facility] Imaging Services Department Imaging Report [address], [place] [address] %(RAD)RES..mtdd.print.filter("line") Name: MADELEINE YEBOAH : 1965 Age/Sex: 53F Ordering Provider: Josue Miller Reason, DO Med Rec #: [id number] Reg Status: DEP REF Room #: Date of Service: 05/08/19 Report Number: [id number] cc:Josue Miller Reason, DO Send Report To: [id number] US/US Soft Tissue Head/Neck Reason for exam: ENLARGED LYMPH NODE Comparison is made to 10/19/2017. FINDINGS: There is a lymph node identified in the right posterior neck measuring 0.6 x 0.2 x 0.6 cm. A second hypoechoic structure is i dentified measuring 0.3 x 0.3 x 0.2 cm. This also likely represents a lymph node. Previously there were lymph nodes identified in this region measuring 0.6 x 0.2 cm. IMPRESSION: Lymph nodes in the right posterior neck measuring 0.6 x 0.2 cm unchanged since the prior study. A second small hypoechoic structure is identified possibly representing a lymph node. REPORT DICTATED BY LONNIE JUNIOR, REVIEWED AND SIGNED BY DR. GIRARD. REPORT SIGNATURE ON FILE Reported By: Lonnie Girard MD <Electronically signed by Margarita Girard MD> 05/09/19 0831 Dictation Date/Time: 05/08/19 1405 Transcribed Date/Time: 05/09/19 0540 Coating Inspector: AARTI Name Value Range Interpretation Code Description Data Hawa rce(s) Supporting Document(s) ID Date Data Source [id number] 05/01/2019 04:00:00 AM EST [facility] Name Value Range Interpretation Code Description Data Hawa rce(s) Supporting Document(s) FESAT Iron result 116 ug/dL 37-170 Normal (applies to non-numeri c results) [facility] Test Performed By: [facility] [address] [place] [address] Director: Pepe Mcnamara MD FESAT TIBC result 328 ug/dL 265-497 Normal (applies to non-numeri c results) [facility] Test Performed By: [facility] [address] [place] [address] Director: Pepe Mcnamara MD FESAT %Iron Saturation result 12.0-55.0 No rmal (applies to non-numeric results) [facility] Test Performed By: [place] [address] Director: Pepe Mcnamara MD ID Date Data Source [id number] 05/01/2019 04:00:00 AM [facility] Value Range Interpretation Code Description Data Hawa rce(s) Supporting Document(s) Ferritin result 36 ng/mL 11.1-264.0 Normal (applies to non-numeric results) [facility] Test Performed By: [place] [address] Director: Pepe Mcnamara MD ID Date Data Source [id number] 05/01/2019 04:00:00 AM [facility] Value Range Interpretation Code Description Data Hawa rce(s) Supporting Document(s) CPK result 95 U/L 26-192 Normal (applies to non-numeric resul ts) [facility] Test Performed By: [place] [address] Director: Pepe Mcnamara MD ID Date Data Source [id number] 05/01/2019 04:00:00 AM [facility] Value Range Interpretation Code Description Data Hawa rce(s) Supporting Document(s) Vitamin B12 result 444 pg/mL 193-986 Normal (applies to non-numer ic results) [facility] Test Performed By: [place] [address] Director: Pepe Mcnamara MD ID Date Data Source [id number] 05/01/2019 04:01:00 AM [facility] Value Range Interpretation Code Description Data Hawa rce(s) Supporting Document(s) Folate result 2.76-20.0 Normal (applies to non-numeric re sults) [facility] Test Performed By: [place] [address] Director: Pepe Mcnamara MD ID Date Data Source [id number] 04/30/2019 06:58:00 PM EST [facility] Value Range Interpretation Code Description Data Hawa rce(s) Supporting Document(s) Iron FE Level 116 ug/dL 37-170 Normal (applies to non-numeric re sults) [facility] Test Performed By: [facility] [address] [place] [address] Director: Pepe Mcnamara MD Total Iron Binding Capacity 328 ug/dL 265-497 Norm al (applies to non-numeric results) [facility] Test Performed By: [facility] [address] [place] [address] Director: Pepe Mcnamara MD %Iron Saturation 12.0-55.0 Normal (applies to non-numeric results) [facility] Test Performed By: [facility] [address] [place] [address] Director: Pepe Mcnamara MD ID Date Data Source [id number] 04/30/2019 06:58:00 PM EST [facility] Value Range Interpretation Code Description Data Hawa rce(s) Supporting Document(s) Ferritin 36 ng/mL 11.1-264.0 Normal (applies to non-numeric resul ts) [facility] Test Performed By: [facility] [address] [place] [address] Director: Pepe Mcnamara MD ID Date Data Source [id number] 04/30/2019 06:58:00 PM EST [facility] Value Range Interpretation Code Description Data Hawa rce(s) Supporting Document(s) CPK 95 U/L 26-192 Normal (applies to non-numeric resul ts) [facility] Test Performed By: [facility] [address] [place] [address] Director: Pepe Mcnamara MD ID Date Data Source [id number] 04/30/2019 06:59:00 PM EST [facility] Value Range Interpretation Code Description Data Hawa rce(s) Supporting Document(s) Folate 2.76-20.0 Normal (applies to non-numeric resul ts) [facility] Test Performed By: [facility] [address] [place] [address] Director: Pepe Mcnamara MD ID Date Data Source [id number] 04/30/2019 06:58:00 PM [facility] Name Value Range Interpretation Code Description Data Hawa rce(s) Supporting Document(s) Vitamin B12 444 pg/mL 193-986 Normal (applies to non-numeric resu lts) [facility] Test Performed By: [facility] [address] [place] [address] Director: Pepe Mcnamara MD ID Date Data Source [id number] 04/30/2019 12:17:00 PM [facility] Name Value Range Interpretation Code Description Data Hawa rce(s) Supporting Document(s) Color,Urine Colorl-Dk Y Normal (applies to non-numeric res ults) [facility] Clarity,Urine Clear Normal (applies to non-numeric re sults) [facility] Specific [place],Urine 1.005-1.030 Normal (applies to non- numeric results) [facility] pH,Urine 5.0-8.0 Normal (applies to non-numeric resul ts) [facility] Protein,Urine Negative [facility]ose Glucose,Urine Negative Normal (applies to non-numeric re sults) [facility] Ketones,Urine Negative Normal (applies to non-numeric re sults) [facility] Blood,[facility]rine Negative [facility] Bil[facility],U[facility] Negative [facility] pital Urobilinogen,Urine 0.2-1.0 Normal (applies to non-numer ic results) [facility] Leukocyte Esterase,Urine Negative Normal (applies to non -numeric results) [facility] Nitrite,Urine Negative Normal (applies to non-numeric re sults) [facility] ID Date Data Source [id number] 04/30/2019 12:17:00 PM [facility] Name Value Range Interpretation Code Description Data Hawa rce(s) Supporting Document(s) RBC,Urine None Seen [facility] WBC,Urine None Seen Normal (applies to non-numeric resul ts) [facility] Casts,Urine None Seen Normal (applies to non-numeric resu lts) [facility] Squamous Cells,Urine None Seen [facility] Bacteria,Urine None Seen Normal (applies to non-numeric r esults) [facility] Mucus,Urine None [facility]en [facility] ID Date Data Source [id number] 04/30/2019 11:22:00 AM EST [facility] Name Value Range Interpretation Code Description Data [facility] Supporting Document(s) Sodium 145 mmol/L 136-145 Normal (applies to non-numeric resul ts) [facility] Potassium 3.5-5.1 Normal (applies to non-numeric resul ts) [facility] Chloride 106 mmol/L 98-107 Normal (applies to non-numeric resul ts) [facility] Carbon Dioxide CO2 21-32 Normal (applies to non-numer ic results) [facility] Anion Gap 5.0-16.0 Normal (applies to non-numeric resul ts) [facility] BUN 14 mg/dL 7-18 Normal (applies to non-numeric results) [facility] Creatinine,Serum 0.7-1.2 Normal (applies to non-numeric results) [facility] GFR >60 Normal (applies to non-numeric results) [facility] Glucose Level 106 mg/dL 60-99 Above high normal [facility] Reference range is only applicable when patient is fasting Note the following drug interference: Sulfasalazine Sulfapyridine Can see falsely depressed Can see falsely elevated result with up to 17% results with up to 11% decrease in measurement increase in measurement Recommend patients be collected for this test prior to administration of either drug. Calcium 8.5-10.1 Normal (applies to non-numeric resul ts) [facility] Bilirubin,Total 0.1-1.9 Normal (applies to non-numeric results) [facility] SGOT(AST) 33 U/L 15-37 Normal (applies to non-numeric resul ts) [facility] Note the following drug interference: Sulfasalazine Sulfapyridine Can see falsely depressed Can see falsely elevated result with up to 10% results with up to 10% decrease in measurement increase in measurement Recommend patients be collected for this test prior to administration of either drug. SGPT(ALT) 54 U/L 12-78 Normal (applies to non-numeric resul ts) [facility] Note the following drug interference: Sulfasalazine Sulfapyridine Can see falsely depressed Can see falsely elevated result with up to 29% results with up to 10% decrease in measurement increase in measurement Recommend patients be collected for this test prior to administration of either drug. Alkaline Phosphatase 115 U/L 38-126 Normal (applies to non-num ja results) [facility] can increase Alkaline Phosp le vels up to 2 times the normal adult value. Normal values for children and adolescents are 2 to 3 times the normal adult value. Total Protein 6.0-8.2 Normal (applies to non-numeric re sults) [facility] Albumin Level 3.4-5.0 Normal (applies to non-numeric re sults) [facility] ID Date Data Source [id number] 04/30/2019 11:22:00 AM [facility] Name Value Range Interpretation Code Description Data Hawa rce(s) Supporting Document(s) Phosphorus 2.5-4.9 Normal (applies to non-numeric resul ts) [facility] ID Date Data Source [id number] 04/30/2019 11:22:00 AM [facility] Name Value Range Interpretation Code Description Data Hawa rce(s) Supporting Document(s) Magnesium 1.8-2.4 Normal (applies to non-numeric resul ts) [facility] ID Date Data Source [id number] 04/30/2019 11:22:00 AM [facility] Name Value Range Interpretation Code Description Data Hawa rce(s) Supporting Document(s) Triglycerides 57 mg/dL <150 Normal (applies to non-numeric re sults) [facility] Cholesterol 146 mg/dL 100-200 Normal (applies to non-numeric resu lts) [facility] LDL Cholesterol Calculated 64 0-130 Normal (applies to n on-numeric results) [facility] HDL Cholesterol 71 mg/dL 40-60 Above high normal [facility] Cholesterol/HDL Ratio 3.6-6.7 Below low normal [facility] ID Date Data Source [id number] 04/30/2019 11:22:00 AM [facility] Name Value Range Interpretation Code Description Data Hawa rce(s) Supporting Document(s) Thyroid Stimulate Hormone TSH 0.358-3.74 No rmal (applies to non-numeric results) [facility] ID Date Data Source [id number] 04/30/2019 11:22:00 AM EST [facility] Name Value Range Interpretation Code Description Data Hawa rce(s) Supporting Document(s) Free T4 (Free Thyroxine) 0.76-1.46 Normal (applies to non -numeric results) [facility] ID Date Data Source [id number] 04/30/2019 10:44:00 AM [facility] Name Value Range Interpretation Code Description Data Hawa rce(s) Supporting Document(s) White Blood Count 3.5-10.5 Normal (applies to non-numeri c results) [facility] Red Blood Count 3.90-5.00 Normal (applies to non-numeric results) [facility] Hemoglobin 12.0-15.5 Normal (applies to non-numeric resul ts) [facility] Hematocrit 34.9-44.5 Normal (applies to non-numeric resul ts) [facility] Mean Corpuscular Volume 81.2-95.1 Normal (applies to non- numeric results) [facility] Mean Corpuscular Hgb 25.6-32.2 Normal (applies to non-num ja results) [facility] Mean Corpuscular Hgb Conc 32.0-36.0 Normal (applies to no n-numeric results) [facility] Red Cell Distribution Width 11.9-15.5 Normal (appli es to non-numeric results) [facility] Platelet Count 202 x10 3/uL 150-450 Normal (applies to non-numeric results) [facility] Mean Platelet Volume 9.4-12.4 Normal (applies to non-num ja results) [facility] Neutrophils% (Auto) 31.0-71.0 Normal (applies to non-nume marisa results) [facility] Lymphocytes% (Auto) 20.0-55.0 Normal (applies to non-nume marisa results) [facility] Monocytes% (Auto) 4.0-12.0 Normal (applies to non-numeri c results) [facility] Eosinophils% (Auto) 1.0-8.0 Above high normal [facility] Basophils% (Auto) 0.0-2.0 Normal (applies to non-numeri c results) [facility] Immature Granulocytes% (Auto) 0.0-2.0 Normal (irina lies to non-numeric results) [facility] Neutrophils# (Auto) 1.50-6.20 Normal (applies to non-nume marisa results) [facility] Lymphocytes# (Auto) 1.20-4.00 Normal (applies to non-nume marisa results) [facility] Monocytes# (Auto) 0.00-0.90 Normal (applies to non-numeri c results) [facility] Eosinophils# (Auto) 0.00-0.50 Above high normal [facility] Basophils# (Auto) 0.00-0.20 Normal (applies to non-numeri c results) [facility] Immature Granulocytes# (Auto) 0.00-7.00 No rmal (applies to non-numeric results) [facility] ID Date Data Source [id number] 04/15/2019 11:27:25 PM EST [facility] Name Value Range Interpretation Code Description Data Hawa rce(s) Supporting Document(s) &PDF [facility] OMCPUm9wOiSZEjZr41/QXLtxUYVjt9AvHVwgWHy2NBqaYCGtY3RadAabGJsIJjYRRhkLKUDJY5HkBBJm y QhoILoL8sdxCCoyhQAz2Xbf3SnqMqkklpXCdJtMm3QYpOfBW9jbe1MLOTgQA1ake0DCMW8ZD1KcHd5ZP NbS0YbIOTaXEKxg0NqDQ5ZKS7xvQktGoFpMN2+ONhjNOI0kbUdcW8UHHKtFCaa3GILza4g/wOBxQIukH y8lfG8EXBGbfIhzwA74rkvV5sq11D5Av1K2wq/fiVR 8ly9vs0CXUafezEr4BVPqNdMxuXlZHS67h+vD7EJ38vr441BHTVA8Na4+26k0y212xtfsgQWw25VEIMP LOBu3I8yVCnM4P9oZL246gSn2zJ9gbZ5wEQb/PTdb+BzOr3vrcqJ8EQWTdISya+AwSzSCSDA5H4yrPFs W8SRRIsTIK3eg7tGRQE6PXXkJBNqNpPBPpR4bKFcTD W0debdV2og6aahAAuAYUiwQ+9+Lisy/Sgk1ZdUXRzA8CRJfvaXNvIZRDfUdPcRnEIQ6T/emIG/+TFrsxQ [file] 7x7UyqOlmUQAw29aoMWjVzoCahrtXN83xWHWvNfqfsxDHAMNY1J0N2XOV+VqbnmO3MOJpBY2ZheLa+KILN PUSHER [file] [facility]++7+LscBHCmT6fbw4wyFteq05pafqkJ [file] QhkQ9+5l5/zKTMwyeN78jPhKIhuUj8Y+Fgtwotfvu7CNnYZnrxXgL1BzIUdcUp3mElh51zGRXNxeV+Rodriguez edo6tCm5Y4vNyu/UPrUGSicfh47EbxZKEOY90xT/kcoR6EcPFIaeVqgmW/08k0VVt5pVYq19VKlh8wj7 xwpF94fdN+j5IXdPoqE1d3/dBC6u9KMtcCZ94eg2G/ yFWPOZqBjcX07F+LdwkHS/vRb6KwWaB3Nr0KQEKeEK6g4Kgrm8erO+EDwmn/8/SABRINA/A/TrN4SWWbIhGD B2vpDjxM7ZHO6vy4KcXVucXAAnRZ8cmx3CJJjCQoDcA8G2wYGqNH9hkuOvgC4XjZT8nPBfH6gjBMsoR8 6kjLRqtL3lIj9FfXPyMYKgC94yfV6yOU40UPyxA23k s5UNyIOhRU4CWYYpZ2UGU2PhH7btdIrxNBEuM4lpfGxhnKVhKPXcUXLpV5VhWVr0DwJzNgmwyDWlQJnm DkielUGDKOOzFQPcGCvmQF6OOJAvchHcUDSlNKNtKSj+Ub2Uu2RxTMLdHOfWmt3aL3RnZEWNOYXTDRIV oWKoqVibLROLQDLooQorIdaCGql4zUuSw8iTomkBsm 86ili3NsoVGce/qrv+tSz/LCkld2+2PQn/3Z+4/xTCPNAerpmy05OXjb24+OQKupRSqTtYldofUHzgU2 0klCpYnOX5unC9KL5Omkqehb5SYQYIBeWke3QMynQ/MPKRr0/4HxQc5XalO9AI1rngj04+H2A/isPqVi 6LiVfgZDrQIvz2JCfVv320jkGQRWaVesobSliD5xpL gzkx2WkbcQcwFGwCyfb641k94TMDRe5NFLdEIQ9xjyvmAhaVsTc8s+5Ii4Q2ZjysOFASvEfZquj5Ukv4 F96eOu1Oj6OBRnWbCEIw9256TmjfiiNraLTmnUVJR8JaW3So+UIseht61YONimNVt9/1xsJeX9FUHMjU /uA4dxvdTV0XrS/s+5E6ZRFIgpXLcSG1fBB/bwKU8z cfPgvc4V/HLdTM8ZrnRjuKkUVhg9o6Kc496CO1eyX9E1RVxblH4Arsl7xLlWUKmYQPj2kIy86zTAgixF rJeXlxQVVq/6olanWC+70JtCELzVYXWH/ZfmVdNMGCS3/Rh+mJBhFIFJTpokY1KEuq+Z6mcPeZmujQLM ctRxUY/ogLaomdt4B4og/t3/75wRaikylm0f4H26jy xwnJtGNFbgoIjJu8Ji0u0LJ/p7F9zlG/Maria Guadalupe+J9934ukthCTDNB1x7Fw17N0m2vE93i5Cd2Fg3c3rKNqf LHosAyQ9sbD/AipwzrNj0odfnptHI6Gx2D3vQPnQdc4peyWK3hAmtWysV8mgKb0SZ0PyA+tlRwHjjqEb emfQZY652oc7fS/sA2n01xxZOJ1YPTLv+bFzLR4aYe 7CYKNb9sIRAHa7Nzj8sDSHmftWaC/S1idcizioq+ZmaUY+fdu+Cuca+3n3A1X9i4Sjk3xg9lgL0Vr+3oA [file] AgICAgICAgICAgICAgICAgICAgICAgICAgICAgICAgICAgICAgICAgICAgICAgICAgICAgICAgICAgIC AgICAgICAgICAgICAgICAgICAgICAgICAgICAgICAg GWRlBV7TTFHmFXRkARSkVJMsFKRyCHQtBOZrEIQyVYStCLKtTZDmOCNyHSXgDGEyFGYlVUQyRLZiVJUt JAWzHAGuBGFoCDMnATRaYYFoOOMqLBTuDBJmCEAvHETtTKTyZJOxZCUnIIUsSC9WOFMkNKDaOZKwGAHv ICAgICAgICAgICAgICAgICAgICAgICAgICAgICAgIC ZdYHUdWESkBQWhPEHfNXAnMQUeYIEhUNWeIZBcWWGkUIRoCCOkOFYbAGMfPEEbQKZpAKAhDONxHK3IDS AgICAgICAgICAgICAgICAgICAgICAgICAgICAgICAgICAgICAgICAgICAgICAgICAgICAgICAgICAgIC AgICAgICAgICAgICAgICAgICAgICAgICAgICAgICAg XBBiKSNdGB9RPNDjQHXbWCAnPYVeBWCkFZSjYSAyAFXrXTXtKJKrNJSdMXNuLFIeTEGrLDBiLOOwRHEa BQTaTXIxIPDmABKbIXRzDDYtLFAwYAPiPOCjAEXrGKMoMJRgBBXvXOMzIKDcNXLeNR5OGYKnWNEiOJIz ICAgICAgICAgICAgICAgICAgICAgICAgICAgICAgIC AgICAgICAgICAgICAgICAgICAgICAgICAgICAgICAgICAgICAgICAgICAgICAgICAgICAgICAgICAgIA 0KICAgICAgICAgICAgICAgICAgICAgICAgICAgICAgICAgICAgICAgICAgICAgICAgICAgICAgICAgIC AgICAgICAgICAgICAgICAgICAgICAgICAgICAgICAg ABSlHLQbURIlRO1OJUFgTCZuIKWmAONfDECoRBMuWNSfUBNaVHOnUCYlBSEwAAQpVOZtMJMgNBQqFHAn MGPkGTXvQNJiLFKxFOWbHZRnCDYkHCGtQDThXORcRATeQZRhYXJtXPCgTKBoDFShNALpMJ0MWNMwIXWu ICAgICAgICAgICAgICAgICAgICAgICAgICAgICAgIC AgICAgICAgICAgICAgICAgICAgICAgICAgICAgICAgICAgICAgICAgICAgICAgICAgICAgICAgICAgIC PmWZ0QTWBiIZVeQQRnUYGnGPYaCFKdMZNmVYYpAAIwOKIhYVFmYQCgECPhNFXyMZNxUVRfAZBmYSVfXV AgICAgICAgICAgICAgICAgICAgICAgICAgICAgICAg USHuAGPhQEYqKOUyPX7UJV10bNHnz2A0WMAtXG9uilj/Ur8VCFyeetOtjIOpHF6RFqVeXL1yup3ELuAu JE2ddz3CQJrSLyBmM1F0lFCjFSWtEOWAMkRjT95wTHjwAq32CGssSJLmYyEfBDc1Rn9BYnRqO8kaHRYh WxW2IPAqJtE5OPCoQvBgTRykMM0Vj7WquPPyLVt+Pg 6HFY1nj4KfBKooDwWqLV7wuc7JTFcOSmHbX3F8pLQjD4H5JOrgGu1USMHdNKSlDaUnJFOZHOynFQ3KYC 7rigC5BQ4NhJZvFGViRJUqpQGlYOd6F97seMKbKAinSO5AMCY+Chanelle+Wr3NRTZhGHBwCTQbAiVoGUKOMj UqQ47wmOZsZDBvGRDaWDWvZr4FVIImI2RsbwWncUyq jjPkLFRsLKOOMG5TMKambhZbrKJubHolHE58tDwkVF4POz3YQzUsXL0cit7ZkHGbGl4ZHSAcIG1BZWAk XBYgCAUtHLV1MZYvZdFlQKwoSDYqXMOvTXG2INZjFDWpCE8ALjPmMFWeSKZ6XZVuKKNvRWZpls7UFXEz NYE3ZSYsMzCwVILeRKNtJCndHVPcNZWlMDpiOPNxRN WxKZ2XQuTcKIXcGSL8RFKxYBOsPTThfx2SPXHjPIFxDca5ApFlERPtUCCeECvbENBaICE9PrZuHMKtCZ XqCJ6JPlWlAAKlLSD0MAdtHXHlELEorv1UBQDfKQBaUip7FIYzZSZgKAEkPXduBEXxBIQ4ZVY3JVTkTR WuMW8FPuLgAMPuAFkdRZDvKYQjOXEkeh3YEGTdFLJv PKQmCnKyNEBcETRyOHxgXAGaVOL1VBU9AJIdOXMqFL5NHlGhTNBcAUn0UVCeDDDwFTHbeh8OLWRiJDEb PvW2GDPzCLBxGLPhFPidMOSkDDKvJoX5YPTlHVAxXO5CDrYtPQHnTTX1BhtnTVUoJOIsci7XASXsZSQz VJHkTbEsMMPrCYCyGHjrLTRpCBB1OiQ3OTErLFCnYV 3ZAyBiSEOqMOExAPCvVVNrNWPomj3VZNOxFBVnVFS6KLGeSRIxOPQyRAdpNWQqMRC6CxH5WHGiRECiPM 7IFlMoTDAdMuPxHEvtULGaJKZlsq2IEPCqDCOcDVT5UqIcBYOkOQOiDMhkVBTuPKN5ECp4UKAlMXCxUT 4CIoOqXMBrGhx7IQlqLZOfKUUwhv1XEMDbSCN6DqWq WKUfHMMlJZLwQMbmPSCkASFkJHZ4GHAyJAZgLP8TRdVcPTVrFrW8WtSxBCZmPBNskf8KHWRzQOP9KKIg KIZvMGKjAHHlZCvcKWWaKYr3ZfK1TZNxQNWxGH9PCbFeASSpBLyuGFDaMNPiFEMqte2TTKKhAHF1YOOn VcEiCMMsMHJoKVr7nwVywGWiWGa0JI5PL2NmnuAmOl SMSb7Xj627NEHuASAuNl6CA0wmHj0kCVTxPPXGEo2ZXOt7Yjc1Udb4MJT9CbF6SubfAONaGMK4OWZ7L9 R1T3BqNSA+WBe7ORdeCUz5DUM0BupfR3OsFTUmNFI1MQQkDNKfSKUkKy6iCOLMHp1+DQpzdGFydHhyZW VXGtc6GCKaOWjyAEBKTq0Z ID Date Data Source [id number] 04/16/2019 08:25:00 AM [facility] Imaging Services Department Imaging Report [address] [address] %(RAD)RES..[email or web address].filter("line") Name: MADELEINE YEBOAH : 1965 Age/Sex: 53F Ordering Provider: Josue Hanna DO Med Rec #: [id number] Reg Status: [facility] REF Room #: Date of Service: 04/15/19 Report Number: [id number] cc:Josue Hanna DO Send Report To: [id number] XRP/XR Chest 2 View [Pa & Lat] Reason for exam: CHEST PAIN Comparison: 04/18/18 FINDINGS: No active infiltrates are seen. Heart and mediastinum are normal. Aleft transvenous bisequential AV pacemaker is noted. IMPRESSION: No acute disease in the lungs or mediastinum. Time portable performed: Fluoroscopy time in seconds: Number of Exposures: Contrast Agent in ml: Method of Administration: REPORT SIGNATURE ON FILE Reported By: Lonnie Mckay MD <Electronically signed by Lonnie Mckay MD> 04/16/19 1605 Dictation Date/Time: 04/15/19 1526 Transcribed Date/Time: 04/16/19 0825 Coating Inspector: AARTI Name Value Range Interpretation Code Description Data Hawa rce(s) Supporting Document(s) Procedure Social History Code Duration Value Status Description Data Source(s ) Smoking 01/09/2020 12:00:00 AM EDT Patient has never smoked co mpleted Patient has never smoked [facility] ([facility]) Vital Signs ID Date Data Source UNK Name Value Range Interpretation Code Description Data Source(s) Body surface area Derived from formula 1.69 m2 1.69 m2 [facility] ([facility]) Body weight 68.040 kg 68.040 kg [facility] ([facility]) Drew body weight 110 [lb_av] 110 [lb_av] [facility] T ([facility]) Body mass index (BMI) [Ratio] 27.4 kg/m2 27.4 k g/m2 [facility] ([facility]) Body weight 150.00 [lb_av] 150.00 [lb_av] [facility] T ([facility]) Body height 62 [in_i] 62 [in_i] [facility] ([facility]) 5'2" Body surface area Derived from formula 1.69 m2 1.69 m2 [facility] ([facility]) Body weight 68.040 kg 68.040 kg [facility] ([facility]) Drew body weight 110 [lb_av] 110 [lb_av] [facility] T ([facility]) Body mass index (BMI) [Ratio] 27.4 kg/m2 27.4 k g/m2 [facility] ([facility]) Body weight 150.00 [lb_av] 150.00 [lb_av] [facility] ([facility]) Body height 62 [in_i] 62 [in_i] [facility] ([facility]) 5'2" Diastolic blood pressure--sitting 73 mm[Hg] 73 mm[Hg] [facility] ([facility]) [place], adult cuff/Ra Systolic blood pressure--sitting 106 mm[Hg] 106 mm[Hg] [facility] ([facility]) [place], adult cuff/Ra Heart rate 60 /min 60 /min [facility] ([facility]) Body mass index (BMI) [Ratio] 27.6 kg/m2 27.6 k g/m2 [facility] ([facility]) Body height 62 [in_i] 62 [in_i] [facility] ([facility]) 5'2" Body weight 151.00 [lb_av] 151.00 [lb_av] MEDEN T ([facility]) ID Date Data Source [id number] 04/14/2020 12:02:00 AM EST [facility] spital Name Value Range Interpretation Code Description Data Source(s) Weight (Calculated Kilograms) 50.12 50.12 [facility] Height (Calculated Centimeters) 157.48 157. 48 [facility] Body Mass Index (BMI) 20.2 20.2 [facility] ID Date Data Source [id number] 03/09/2020 09:46:00 AM EST [facility] Name Value Range Interpretation Code Description Data Source(s) Weight (Calculated Kilograms) 69.30 69.30 [facility] Height (Calculated Centimeters) 167.64 167. 64 [facility] Body Mass Index (BMI) 24.6 24.6 [facility] ID Date Data Source [id number] 03/10/2020 12:02:00 AM EST [facility] Name Value Range Interpretation Code Description Data Source(s) Weight (Calculated Kilograms) 50.12 50.12 [facility] Height (Calculated Centimeters) 157.48 157. 48 [facility] Body Mass Index (BMI) 20.2 20.2 [facility] ID Date Data Source [id number] 11/07/2019 11:28:00 AM EDT [facility] spital Name Value Range Interpretation Code Description Data Source(s) Weight (Calculated Kilograms) 50.12 50.12 [facility] Height (Calculated Centimeters) 157.48 157. 48 [facility] Body Mass Index (BMI) 20.2 20.2 [facility] ID Date Data Source [id number] 09/26/2019 02:17:00 PM EDT [facility] Name Value Range Interpretation Code Description Data Source(s) Weight (Calculated Kilograms) 69.30 69.30 [facility] Height (Calculated Centimeters) 167.64 167. 64 [facility] Body Mass Index (BMI) 24.6 24.6 [facility] ID Date Data Source [id number] 09/27/2019 12:02:00 AM EDT [facility] Name Value Range Interpretation Code Description Data Source(s) Weight (Calculated Kilograms) 50.12 50.12 [facility] Height (Calculated Centimeters) 157.48 157. 48 [facility] Body Mass Index (BMI) 20.2 20.2 [facility] ID Date Data Source [id number] 07/31/2019 03:59:00 PM EDT [facility] Name Value Range Interpretation Code Description Data Source(s) Weight (Calculated Kilograms) 69.30 69.30 [facility] Height (Calculated Centimeters) 167.64 167. 64 [facility] Body Mass Index (BMI) 24.6 24.6 [facility] ID Date Data Source [id number] 07/31/2019 04:07:00 PM EDT [facility] Name Value Range Interpretation Code Description Data Source(s) Weight (Calculated Kilograms) 50.12 50.12 [facility] Height (Calculated Centimeters) 157.48 157. 48 [facility] Body Mass Index (BMI) 20.2 20.2 [facility] ID Date Data Source [id number] 07/13/2019 12:11:00 AM EDT [facility] Name Value Range Interpretation Code Description Data Source(s) Weight (Calculated Kilograms) 50.12 50.12 [facility] Height (Calculated Centimeters) 157.48 157. 48 [facility] Body Mass Index (BMI) 20.2 20.2 [facility] ID Date Data Source [id number] 05/09/2019 08:32:00 AM EST [facility] Name Value Range Interpretation Code Description Data Source(s) Weight (Calculated Kilograms) 50.12 50.12 [facility] Height (Calculated Centimeters) 157.48 157. 48 [facility] Body Mass Index (BMI) 20.2 20.2 [facility] ID Date Data Source [id number] 04/30/2019 06:58:[address] [facility] Name Value Range Interpretation Code Description Data Source(s) Weight (Calculated Kilograms) 69.30 69.30 [facility] Height (Calculated Centimeters) 167.64 167. 64 [facility] Body Mass Index (BMI) 24.6 24.6 [facility] ID Date Data Source [id number] 05/01/2019 04:00:00 AM [facility] spital Name Value Range Interpretation Code Description Data Source(s) Weight (Calculated Kilograms) 50.12 50.12 [facility] Height (Calculated Centimeters) 157.48 157. 48 [facility] Body Mass Index (BMI) 20.2 20.2 [facility] ID Date Data Source [id number] 04/16/2019 04:07:00 PM [facility] spital Name Value Range Interpretation Code Description Data Source(s) Weight (Calculated Kilograms) 50.12 50.12 [facility] Height (Calculated Centimeters) 157.48 157. 48 [facility] Body Mass Index (BMI) 20.2 20.2 [facility] ID Date Data Source [id number] 03/09/2019 12:30:[address] [facility] Name Value Range Interpretation Code Description Data Source(s) Weight (Calculated Kilograms) 69.30 69.30 [facility] Height (Calculated Centimeters) 167.64 167. 64 [facility] Body Mass Index (BMI) 24.6 24.6 [facility] ID Date Data Source [id number] 03/03/2019 12:11:00 AM [facility] sp[facility] Name Value Range Interpretation Code Description Data Source(s) Weight (Calculated Kilograms) 50.12 50.12 [facility] Height (Calculated Centimeters) 157.48 157. 48 [facility] Body Mass Index (BMI) 20.2 20.2 [facility] ID Date Data Source [id number] 02/25/2019 07:00:00 AM EST [facility] Name Value Range Interpretation Code Description Data Source(s) Weight (Calculated Kilograms) 50.12 50.12 [facility] Height (Calculated Centimeters) 157.48 157. 48 [facility] Body Mass Index (BMI) 20.2 20.2 [facility] Weight (Calculated Kilograms) 50.12 50.12 [facility] Height (Calculated Centimeters) 157.48 157. 48 [facility] Body Mass Index (BMI) 20.2 20.2 [facility] Weight (Calculated Kilograms) 50.12 50.12 [facility] Height (Calculated Centimeters) 157.48 157. 48 [facility] Body Mass Index (BMI) 20.2 20.2 [facility] Weight (Calculated Kilograms) 50.12 50.12 [facility] Height (Calculated Centimeters) 157.48 157. 48 [facility] Body Mass Index (BMI) 20.2 202 [facility]
[2020-04-16] MEDS ORDERED: SUGAMMADEX SODIUM 500 MG/5 ML VIAL (BRIDION) As Ordered ONE (09:43)
[2020-04-16] MEDS ORDERED: propofoL 200 MG/20 ML VIAL As Ordered ONE (09:48)
[2020-04-16] MEDS ORDERED: ROCURONIUM BROMIDE 50 MG/5 ML VIAL As Ordered ONE (09:50)
[2020-04-16] MEDS ORDERED: dexameTHASONE 4 MG/ML 1ML VIAL (J1100 PER 1MG) As Ordered ONE (09:50)
[2020-04-16] MEDS ORDERED: MIDAZOLAM INJ 2MG/2ML VIAL (J2250 PER 1MG) As Ordered ONE (09:50)
[2020-04-16] MEDS ORDERED: ONDANSETRON 4MG/2ML VIAL As Ordered ONE (09:50)
[2020-04-16] MEDS ORDERED: LIDOCAINE 2% 100MG/5ML SDV (FOR ANES.) As Ordered ONE (09:50)
[2020-04-16] MEDS ORDERED: fentaNYL 100 MCG/2 ML INJECTION (J3010) As Ordered ONE (09:50)
[2020-04-16] MEDS ORDERED: CIPRODEX OTIC SUSP 7.5ML As Ordered ONE (10:19)
[2020-04-16] MEDS ORDERED: OXYMETAZOLINE 0.05% NASAL SPRAY (AFRIN) As Ordered ONE (11:11)
[2020-04-16] MEDS ORDERED: ONDANSETRON 4MG/2ML VIAL IV PRN (12:15)
[2020-04-16] MEDS ORDERED: fentaNYL 100 MCG/2 ML INJECTION (J3010) IV PRN (12:15)
[2020-04-16] MEDS ORDERED: oxyCODONE 5MG TAB PO PRN (12:15)
[2020-04-16] MEDS ORDERED: LR 1,000 ML IV SCH ×2 (12:15)
[2020-04-16 12:25] VITALS: BP 104/55
--- NOTE | 2020-05-13 10:50 | RO ---
OPERATIVE NOTE DATE OF OPERATION: 04/16/2020 PREOPERATIVE DIAGNOSIS: Right tympanosclerosis and right eustachian tube dysfunction. POSTOPERATIVE DIAGNOSIS: Right tympanosclerosis and right eustachian tube dysfunction. PROCEDURE PERFORMED: Examination of the right ear under general anesthesia and right myringotomy. SURGEON: Jatin Torres MD. [employer] COORDINATOR: ANESTHESIA: General. CLINICAL PREAMBLE: This 54-year-old woman presented to the office with a history of prior right tympanoplasty complaining of hearing difficulty and pain. Physical examination revealed significant right tympanosclerosis. CT scan of the temporal bones showed thickening of the tympanic membrane. Management options including surgery as listed above have been discussed. Patient understood and consented to the procedure. DESCRIPTION OF PROCEDURE: Patient was identified in preoperative holding and brought to the operating room in stable condition. In the supine position on the operating table, patient received general anesthesia followed by laryngeal intubation without incident. Patient was prepped and draped in the usual fashion for the procedure. The patient was then turned to the left side exposing the right ear. Ear speculum was inserted, and cerumen was debrided under binocular magnification using the operating microscope. The right tympanic membrane was found to be intact and sclerotic. It was noted to be somewhat adherent to the middle ear cleft. Myringotomy incision was made over the anterior-inferior quadrant of the right tympanic membrane in attempt to place a tympanostomy tube. Significant oozing was noted. At this time, we attempted to place the tympanostomy tube. Could not afford a secure sitting of the tube on the tympanic membrane. As such, the procedure was terminated at this stage of the right myringotomy. Hemostasis was achieved by placing Afrin drops into the right external auditory canal. Hemostasis was achieved. Ciprodex drops were instilled into the right ear canal. At the end of the procedure, sponge and instrument counts were correct. No complication was encountered. Estimated blood loss was less than 1 mL. General anesthesia was reversed, and patient was extubated and transferred to the recovery room in stable condition.
== END 2020-04-16 12:52 | disposition home or self-care (01) ==
LOC: M SDC 07:53
PROVIDERS: ATTEND Otolaryngology
DX: H92.01 Otalgia, right ear (principal); H90.8 Mixed conductive and sensorineural hearing loss, unspecified; I10 Essential (primary) hypertension; E78.5 Hyperlipidemia, unspecified; I25.2 Old myocardial infarction; I25.10 Atherosclerotic heart disease of native coronary artery without angina pectoris; Z98.61 Coronary angioplasty status; Z95.810 Presence of automatic (implantable) cardiac defibrillator; E11.9 Type 2 diabetes mellitus without complications; K58.8 Other irritable bowel syndrome; M79.7 Fibromyalgia; Z79.82 Long term (current) use of aspirin; Z79.899 Other long term (current) drug therapy; F32.9 Major depressive disorder, single episode, unspecified; J44.9 Chronic obstructive pulmonary disease, unspecified; K21.9 Gastro-esophageal reflux disease without esophagitis
CPT/HCPCS: 69421; J1100; J2250; J2405; J3010

== ENCOUNTER → 2020-09-01 | Outpatient (REF) | payer OTHER ==
[~2020-09-01] MED LIST changes: -LR 1,000 ML IV ONE; -dexameTHASONE 4 MG/ML 1ML VIAL (J1100 PER 1MG) IV ONE
[2020-09-01 17:49] LABS: APPEARANCE, URINE CLEAR (CLEAR); BACTERIA, URINE AUTO NEGATIVE (NEGATIVE); BILIRUBIN, URINE AUTO NEGATIVE (NEGATIVE); BLOOD, URINE BLOOD 2+ (NEGATIVE); COLOR, URINE YELLOW (YELLOW); GLUCOSE, URINE (UA) AUTO NEGATIVE (NEGATIVE); KETONE, URINE AUTO NEGATIVE (NEGATIVE); LEUKOCYTE ESTERASE, URINE AUTO 2+ (NEGATIVE); MUCUS, URINE SMALL (NEGATIVE); NITRITE, URINE AUTO NEGATIVE (NEGATIVE); PROTEIN, URINE AUTO NEGATIVE (NEGATIVE); RBC, URINE AUTO 0 /HPF (0-3); SPECIFIC GRAVITY URINE AUTO 1.013 (1.002-1.035); SQUAMOUS EPITHELIAL CELL UR AU 0 /HPF (0-6); UROBILINOGEN, URINE AUTO 0.2 mg/dL (0.0-2.0); WBC, URINE AUTO 5 /HPF (0-3)
== END ==
LOC: M SMT 16:53
PROVIDERS: ATTEND Nurse Practitioner Women's Health
DX: R31.29 Other microscopic hematuria (principal)